=== PATIENT | male | born 1980 | race Caucasian/White ===

== ENCOUNTER 2019-11-19 05:31 | Emergency (ER) | payer MEDICAID, SELFPAY ==
[2019-11-19 05:32] VITALS: BP 166/114; PULSE 89; RESP 16; TEMP 37.1; O2SAT 100; BMI 21.4
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
[2019-11-19] MEDS: HYDROcodone Bitartrate/Apap 5/325 Tablet PO (06:20)
[2019-11-19 07:55] VITALS: BP 168/107; PULSE 76; RESP 16; O2SAT 99
--- NOTE | 2019-11-19 07:56 | ED.RN ---
DISCHARGE INSTRUCTIONS GIVEN TO AND REVIEWED WITH PATIENT, PATIENT DENIES QUESTIONS OR CONCERNS AND VOICES UNDERSTANDING OF DISCHARGE INSTRUCTIONS. PT AMBULATES OUT OF ROOM WITHOUT ISSUE.
== END 2019-11-19 07:56 | disposition home or self-care (01) ==
PROVIDERS: Emergency Provider Emergency Medicine
DX: S02.609A Fracture of mandible, unspecified, initial encounter for closed fracture (principal); S00.11XA Contusion of right eyelid and periocular area, initial encounter; K02.9 Dental caries, unspecified; Y04.0XXA Assault by unarmed brawl or fight, initial encounter; Y93.9 Activity, unspecified; Y92.9 Unspecified place or not applicable; F17.200 Nicotine dependence, unspecified, uncomplicated
CPT/HCPCS: 70486; 99284

== ENCOUNTER 2019-12-23 13:57 | Emergency (ER) | payer MEDICAID, SELFPAY ==
[2019-12-23] VITALS (8 sets, daily range): BP systolic 149–166; BP diastolic 95–107; PULSE 85–118; RESP 16–18; TEMP -8.8–37.1; O2SAT 97–100; BMI 22.7
--- NOTE | 2019-12-23 15:20 | CT_ITS ---
STUDY: CT SOFT TISSUE NECK WITH CONTRAST REASON FOR EXAM: Male, 39 years old. Left cheek abscess. History of mandibular fracture one month ago. RADIATION DOSAGE (If Supplied By Facility): CTDIvol = ( 15.45 ) mGy, DLP = ( 451.34 ) mGycm TECHNIQUE: The patient was scanned in a multi-detector CT scanner. High resolution transaxial imaging was performed following intravenous administration of IV 100mL Isovue-300. Sagittal and coronal images were reconstructed. Individualized dose optimization techniques were used for this CT. COMPARISON: None. FINDINGS: A right parotid gland. The left parotid gland is poorly visualized. Along its lateral margin or arising from the left parotid is a bilobed fluid collection with enhancing perimeter measuring 2.4 x 3.2 x 3.3 cm in size. Findings are compatible with abscess. There is marked stranding in the soft tissues on the left lower face anterior to the left mandible extending upward to the into the malar region with thickening of the lower preseptal soft tissues of the left orbit. Soft tissue stranding extends along the lateral aspect of the face to the external auditory canal. Lateral masseter space. There is swelling of the left temporalis muscle. There is evidence of a comminuted fracture of the body of the left mandible extending to the angle which lies just beneath the above-mentioned abscess. There appears to be complete displacement of the second molar bony minimal connection to the underlying bone. Normal bilateral parapharyngeal spaces. There is enlargement and on the left jugulodigastric lymph nodes. Normal bilateral sublingual and submandibular glands. There are enlarged lymph nodes in the mandibular space. Normal visualized nasopharynx. Normal retropharyngeal space. Normal perivertebral space. Normal visualized bilateral faucial tonsils. The visualized tongue, tongue base and oropharynx are normal. The visualized cervical lymph nodes (levels I-) are within normal size limits, and maintain normal morphology. Normal epiglottis, bilateral vallecula and hypopharynx. The pre-epiglottic and paraglottic adipose spaces are normal. Normal visualized bilateral piriform sinuses, aryepiglottic folds, vocal cords, and arytenoid-cricoid articulations. Normal subglottic trachea. Normal bilateral lobes of the thyroid gland. Normal visualized pulmonary apices. Normal visualized paranasal sinuses. Normal visualized cervical spine. CT/Soft Tissue Neck WITH Contrast IMPRESSION: 1. Bilobed abscess in the soft tissues overlying the angle of the left mandible. There is diffuse soft tissue swelling extending upward to the left orbit and laterally to the ear. 2. Underlying comminuted left mandibular fracture 3. Small left jugulodigastric and submandibular lymph nodes. 4. Electronically Signed: Miguel La DO at 16:51 EST Tel [phone], Service support ,
[2019-12-23] MEDS: 0.9% Normal Saline 1,000 ML 1000 ML IV (15:33)
[2019-12-23] MEDS: Morphine 4 MG/ML Syringe IV (15:33)
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
[2019-12-23 15:42] LABS: Absolute Neutrophil Count 11.2 X10^3/uL (2.0-7.7); Basophil# 0.04 X10^3/uL; Basophil% 0.3 % (0-1); Eosinophil# 0.25 X10^3/uL; Eosinophils% 1.7 % (0-5); Hematocrit 38.4 % (40-54); Hemoglobin 13.1 g/dL (13.0-16.5); Lymphocyte % 13.7 % (19-41); Mean Corp Hgb Conc 34.1 g/dL (32-36); Mean Corpuscular Hgb 32.3 pg (27.0-32.0); Mean Corpuscular Volume 94.8 fL (80-94); Mean Platelet Vol. 8.9 fl (6.2-12.0); Monocyte# 1.02 X10^3/uL; NRBC Flagged by Analyzer 0 % (0-5); Neutrophil # 11.22 X10^3/uL (2.7-7.7); Neutrophil % 76.9 % (47-70); Platelet Count 350 K/mm3 (150-450); RBC Distribution Width CV 14.4 % (11.6-14.6); RBC Distribution Width SD 50.2 fl (35.1-43.9); Red Blood Count 4.05 M/mm3 (4.6-6.2); White Blood Count 14.6 K/mm3 (4.4-11.0)
[2019-12-23 15:58] LABS: Anion Gap 5 (5-15); BUN 15 mg/dL (7-18); BUN/Creat Ratio 18.1 RATIO (10-20); Calcium,Total 8.8 mg/dL (8.5-10.1); Chloride 109 mmol/L (98-107); Creatinine, Serum 0.83 mg/dL (0.70-1.30); EST Glomerular Filtration Rate 109 mL/min (>60); Est Glom Filt Rate - Afr Amer 131 mL/min (>60); Estimated Creatinine Clearance 119.11 ml/min; Glucose 131 mg/dL (74-106); Potassium 4.1 mmol/L (3.5-5.1); Sodium Level 140 mmol/L (136-145)
[2019-12-23] MEDS: Vancomycin IV 1,000 MG/200 ML BAG 200 MG IV (18:52)
== END 2019-12-23 19:39 | disposition short-term general hospital (02) ==
PROVIDERS: Emergency Provider Emergency Medicine; PCP Nurse Practitioner Family
DX: L02.01 Cutaneous abscess of face (principal); L03.211 Cellulitis of face; Z72.0 Tobacco use
CPT/HCPCS: 70491; 80048; 85025; 96361; 96365; 96367; 96375; 99284; J7030; J7040; Q9967; A4216

== ENCOUNTER 2023-02-26 18:38 | Emergency (ER) | payer MEDICAID, SELFPAY ==
[2023-02-26 18:40] VITALS: BP 146/90; PULSE 95; RESP 14; TEMP 36.3; O2SAT 97; BMI 22.5
--- NOTE | 2023-02-26 20:53 | EDS_ITS ---
HPI History of Present Illness Chief Complaint: Abd Pain Informant: patient Onset/Context/Timing Onset: Yesterday Context: Gradual Onset Timing: Waxes and wanes Current Severity: Mild Maximum Severity: Mild Narrative Narrative: Patient present secondary to abdominal pain with nausea, vomiting, and diarrhea. Symptoms started around 7 PM last evening. He has not been able to keep down fluids or solids today. No fever or chills. He does report abdominal pain but it is more a general cramping that he believes is secondary to the vomiting. His roommate is currently ill with similar. PFSH PFSH Medical History no medical history no medical history Home Medications dicyclomine 20 mg tablet 20 mg PO BID PRN abdominal cramping #10 tabs 02/26/23 [Rx Last Taken Unknown] ondansetron 4 mg disintegrating tablet 4 mg PO Q8H PRN PRN Nausea #10 tabs 02/26/23 [Rx Last Taken Unknown] Allergy/AdvReac Type Severity Reaction Status Date / Time No Known Allergies Allergy Verified 03/02/21 11:20 Surgical History no surgical history no surgical history Social History Smoking Status: Current every day smoker tobacco type: cigarettes ROS ROS ED Constitutional Constitutional ED: Denies chills or fever(s) Eyes Eyes: Denies change in vision or discharge from eye(s) ENT ENT ED: Denies discharge from eye(s), rhinorrhea or sore throat Cardiovascular Cardiovascular: Denies chest pain or palpitations Respiratory/Chest Respiratory/Chest: Denies cough or dyspnea Gastrointestinal Gastrointestinal: Reports abdominal pain, diarrhea, nausea and vomiting Genitourinary Genitourinary ED: Denies dysuria Musculoskeletal Musculoskeletal: Denies back pain or extremity pain Integumentary Denies Abrasions or rash Neurologic Neurologic: Denies headache(s) or weakness Allergic/Immunologic Allergic/Immunologic ED: Denies lip swelling or urticaria EXAM Physical Exam Const Vital Signs: 02/26/23 18:40 Temperature 97.3 F L Temperature Source Temporal Pulse Rate 95 Respiratory Rate 14 Blood Pressure 146/90 H Blood Pressure Mean 108 Pulse Ox 97 Oxygen Delivery Method Room Air Positive well nourished and well developed General Appearance ED: well developed HEENT Reports normocephalic and head/scalp atraumatic Eyes PERRL and EOMs intact bilaterally Neck supple Chest Wall inspection of chest normal and palpation of chest normal Resp normal respiratory effort and clear to auscultation bilaterally Cardio regular rate and regular rhythm GI GI Narrative: Abdomen soft with no focal tenderness. Hypoactive but present bowel sounds noted. Palpation: soft Extremity normal to inspection Neuro oriented x3 and no sensory deficits noted Sensorium / Orientation: alert Motor Exam: strength 5/5 throughout Psych mental status grossly normal Skin no rashes or lesions noted MDM MDM MDM Narrative Medical decision making narrative: Patient was given IV fluids along with Zofran and Bentyl. Lab work obtained. Lab Data Attestation: I reviewed the patient's lab results. Labs: Laboratory Results - last 24 hr 02/26/23 02/26/23 20:50 20:50 WBC 8.0 RBC 5.34 Hgb 17.2 H Hct 50.6 MCV 94.8 H MCH 32.2 H MCHC 34.0 RDW Std Deviation 49.5 H RDW Coeff of Sepideh 14.2 Plt Count 203 MPV 10.3 Immature Gran % (Auto) 0.400 Neut % (Auto) 54.0 Lymph % (Auto) 32.3 [place] % (Auto) 8.4 Eos % (Auto) 4.5 Baso % (Auto) 0.4 Absolute Neuts (auto) 4.3 Absolute Lymphs (auto) 2.59 Nucleated RBC % 0 Sodium 139 Potassium 3.6 Chloride 105 Carbon Dioxide 31.0 Anion Gap 3 L BUN 10 Creatinine 0.91 Estim Creat Clear Calc 107.53 Est GFR (MDRD) Af Amer 116 Est GFR (MDRD) Non-Af 96 BUN/Creatinine Ratio 11.0 Glucose 95 Calcium 8.5 Treatment and Re-Evaluation :: CBC reveals hemoconcentration with a hemoglobin of 17.2. Normal white count and differential. Chemistry studies unremarkable. On repeat evaluation patient states he feels improved. He is able to tolerate p.o. fluids. Prescription for Zofran and Bentyl be sent to the pharmacy for him. Discharge Plan Triage Chief Complaint: Abd Pain Other Complaint: Nausea/Vomiting/Diarrhea ED Provider: Angelika Hayward Dx/Rx/DC Orders Clinical Impression: Gastroenteritis Instructions: ED Gastroenteritis, Viral (Adult) Prescriptions: New ondansetron 4 mg tablet,disintegrating 4 mg PO Q8H PRN PRN (Reason: Nausea) Qty: 10 0RF dicyclomine 20 mg tablet 20 mg PO BID PRN (Reason: abdominal cramping) Qty: 10 0RF Primary Care Provider: Care Physician,No Primary Referrals: Lynne Briceno DO [Med Staff - [employer]] - As Needed Care Physician,No Primary [Primary Care Provider] - Disposition Disposition: Home, Self Care
[2023-02-26] MEDS: Dicyclomine 20 MG/2 ML Vial IM (21:02)
[2023-02-26] MEDS: Ondansetron 4 MG/2 ML Vial IV (21:02)
[2023-02-26] MEDS: 0.9% Normal Saline 1,000 ML 1000 ML IV (21:02)
[2023-02-26 21:03] LABS: Absolute Lymphocyte Count 2.59 X10^3/uL (0.83-4.51); Absolute Neutrophil Count 4.3 X10^3/uL (2.0-7.7); Basophil# 0.03 X10^3/uL; Basophil% 0.4 % (0-1); Eosinophil# 0.36 X10^3/uL; Eosinophils% 4.5 % (0-5); Hematocrit 50.6 % (40-54); Hemoglobin 17.2 g/dL (13.0-16.5); Lymphocyte # 2.59 X10^3/ul (0.83-4.51); Lymphocyte % 32.3 % (19-41); Mean Corpuscular Hgb 32.2 pg (27.0-32.0); Mean Corpuscular Volume 94.8 fL (80-94); Mean Platelet Vol. 10.3 fl (6.2-12.0); Monocyte# 0.67 X10^3/uL; Monocyte% 8.4 % (0-10); NRBC Flagged by Analyzer 0 % (0-5); Neutrophil # 4.34 X10^3/uL (2.7-7.7); Platelet Count 203 K/mm3 (150-450); RBC Distribution Width CV 14.2 % (11.6-14.6); RBC Distribution Width SD 49.5 fl (35.1-43.9); Red Blood Count 5.34 M/mm3 (4.6-6.2)
[2023-02-26 21:22] LABS: Anion Gap 3 (5-15); BUN 10 mg/dL (7-18); Calcium,Total 8.5 mg/dL (8.5-10.1); Chloride 105 mmol/L (98-107); Creatinine, Serum 0.91 mg/dL (0.70-1.30); EST Glomerular Filtration Rate 96 mL/min (>60); Est Glom Filt Rate - Afr Amer 116 mL/min (>60); Estimated Creatinine Clearance 107.53 ml/min; Glucose 95 mg/dL (74-106); Potassium 3.6 mmol/L (3.5-5.1); Sodium Level 139 mmol/L (136-145)
[2023-02-26 22:35] LABS: Bacteria 0 SEEN /hpf (None Seen); Mucous, Urine 0 SEEN /hpf (<or=2+); Red Blood Cells-Urine 0 SEEN /hpf (0-5); Squamous Epithelial Cells - UA 0 SEEN /hpf (0-5); White Blood Cells 0 SEEN /hpf (0-5)
[2023-02-26 22:46] VITALS: BP 141/80; PULSE 63; RESP 14; O2SAT 98
[2023-02-26 23:19] LABS: Color, Urine Yellow (Yellow); Glucose, Dipstick Normal (Normal); Ketone-Dipstick Negative (Negative); Leukocyte Esterase-Dipstick Negative /ul (Negative); Nitrite-Dipstick Negative (Negative); Occult Blood-Urine Negative /ul (Negative); Protein-Dipstick 15 mg/dl (Negative); Specific Gravity, Urine 1.015 (1.002-1.030); Urine Bilirubin Dipstick Negative (Negative); Urine Clarity Sl. Cloudy (Clear); Urine Urobilinogen 1 mg/dl (Normal); Urine pH 6.5 (5.0 - 8.0)
== END 2023-02-26 22:53 | disposition home or self-care (01) ==
PROVIDERS: Emergency Provider Emergency Medicine; Visit Provider Emergency Medicine
DX: K52.9 Noninfective gastroenteritis and colitis, unspecified (principal); F17.210 Nicotine dependence, cigarettes, uncomplicated
CPT/HCPCS: 80048; 81001; 85025; 87428; 96361; 96372; 96374; 99282; J7030; A4216; J2405

== ENCOUNTER 2023-12-07 14:35 | Emergency (ER) | payer MEDICAID, SELFPAY ==
[2023-12-07 14:36] VITALS: BP 124/87; PULSE 82; RESP 18; TEMP 36.7; O2SAT 98; BMI 23.5
--- OUTSIDE RECORDS SUMMARY | 2023-12-07 17:14 | XMS RPT_ITS | CCD ---
Author Name Unknown Address [address] [place] [address] [address] [place] [address] Organization [facility] Care Team Providers Care Medical Art Therapist Name Role Phone Julisa Multani APRN, CNP Primary Care Provider Unavailable Bridget Vann APRN.CNP Primary Care Provider BRIDGET VANN Attending Unavailable BRIDGET VANN Primary Care Unavailable DURAN VERDUZCO Attending Unavailable BRIDGET VANN Primary Care Unavailable BRIDGET VANN Attending Unavailable BRIDGET VANN Primary Care Unavailable Medications Current Medications Medication Drug Class(es) Dates Sig (Normalized) Sig (Original) acetaminophen 500 mg oral tablet (2 sources) Start: 12-28-2019 take 1 tablet by mouth four times daily as needed for pain acetaminophen (TYLENOL) 500 MG tablet Take 1 tablet by mouth 4 times daily as needed for Pain 120 tablet 0 12/28/2019 Active Completed/Discontinued Medications Medication Drug Class(es) Dates Sig (Normalized) Sig (Original) calcium chloride 0.0014 meq/ml / potassium chloride 0.004 meq/ml / sodium chloride 0.103 meq/ml / sodium lactate 0.028 meq/ml injectable solution (1 source) Start: 12-23-2019 End: 12-26-2019 Intravenous, at 125 mL/hr, CONTINUOUS, Starting 12/23/19 at 2230 1 ml hydrALAZINE hydrochloride 20 mg/ml injection (1 source) Arteriolar Vasodilator Start: 12-24-2019 End: 12-24-2019 hydrALAZINE (APRESOLINE) injection 5 mg 1 ml ketorolac tromethamine 30 mg/ml cartridge (2 sources) Nonsteroidal Anti-inflammatory Drug, Cyclooxygenase Inhibitor Start: 12-26-2019 End: 12-27-2019 ketorolac (TORADOL) injection 30 mg Problems Active Problems Problem Classification Problem Date Documented Da te Episodic/Chronic Neoplasms of unspecified nature or uncertain behavior (2 sources) Skin lesion; Translations: [Neoplasm of unspecified behavior of bone, soft tissue, and skin] Onset: 11-08-2023 Episodic Other male genital disorders (2 sources) Male erectile dysfunction, unspecified; Translations: [Impotence of organic origin] Onset: 11-08-2023 Chronic Viral infection (1 source) Verruca vulgaris; Translations: [Viral wart, unspecified] Onset: 05-06-2023 05-06-2023 Episodic Past or Other Problems Problem Classification Problem Date Documented Date Episodic/Chronic Disorders of teeth and jaw (2 sources) Abscess of mandible Onset: 12-23-2019 Episodic Immunizations and screening for infectious disease (4 sources) Patient encounter status; Translations: [Encounter for immunization] Onset: 04-02-2023 Episodic Other screening for suspected conditions (not mental disorders or infectious disease) (3 sources) Encounter for screening for lipoid disorders; Translations: [Encounter for screening for cardiovascular disorders] Onset: 04-02-2023 Episodic Skin and subcutaneous tissue infections (2 sources) Cellulitis of face Onset: 12-23-2019 Episodic Skull and face fractures (2 sources) Closed fracture of body of mandible Onset: 12-23-2019 Episodic Results Test Name Value Interpretation Reference Range Facil ity Vital Signs Date Time Vital Sign Value Performing Clinician Francy naranjo 04-02-2023 16:02-0400 Body weight 68.49 kg Bridget Vann APRN.CNP Work Phone: [facility] 04-02-2023 16:02-0400 Diastolic blood pressure 80 mm[Hg] Bridget Vann APRN.CNP Work Phone: [facility] 04-02-2023 16:02-0400 Heart rate 110 /min Bridget Vann APRN.CNP Work Phone: [facility] 04-02-2023 16:02-0400 Respiratory rate 16 /min Bridget Vann APRN.CNP Work Phone: [facility] 04-02-2023 16:02-0400 Systolic blood pressure 130 mm[Hg] Bridget Vann APRN.CNP Work Phone: [facility] 12-28-2019 17:24-0500 Body temperature 98.2 [degF] Nik Ferreira MD Work Phone: [facility] Work Phone: 12-28-2019 17:24-0500 Diastolic blood pressure 94 mm[Hg] Nik Ferreira MD Work Phone: [facility] Work Phone: 12-28-2019 17:24-0500 Heart rate 82 /min Nik Ferreira MD Work Phone: [facility] Work Phone: 12-28-2019 17:24-0500 Respiratory rate 16 /min Nik Ferreira MD Work Phone: [facility] Work Phone: 12-28-2019 17:24-0500 SaO2% (BldA) [Mass fraction] 97 % Nik Ferreira MD Work Phone: [facility] Work Phone: 12-28-2019 17:24-0500 Systolic blood pressure 167 mm[Hg] Nik Ferreira MD Work Phone: [facility] Work Phone: 12-23-2019 20:45-0500 Body height 177.8 cm Nik Ferreira MD Work Phone: [facility] Work Phone: 12-23-2019 20:45-0500 Body mass index (BMI) [Ratio] 22.53 kg/m2 Nik Ferreira MD Work Phone: [facility] Work Phone: 12-23-2019 20:45-0500 Body weight 71.22 kg Nik Ferreira MD Work Phone: [facility] Work Phone: Encounters Encounter Date Encounter Type Care Provider Facility Start: 11-08-2023 End: 11-09-2023 ambulatory BRIDGET VANN Facility:[facility] Start: 05-06-2023 Telephone encounter Duran bermeo APRN.WEB CONTENT & SOCIAL MEDIA MANAGER Work Phone: Dermatology Procedures Date Procedure Procedure Detail Performing Clinician Start: 12-29-2019 Microscopic examinat ion of blood, culture Plan of Treatment Date Care Activity Detail Author Start: 04-02-2033 Urine microalbumin profile DTA P,TDAP,TD (2 - Td or Tdap) [facility] Start: 04-02-2024 COVID-19 VACCINE (#1) COVID-19 VACCI NE (#1) [facility] Immunizations Immunization Date Immunization Notes Care Provider Fa cility 04-02-2023 tetanus toxoid, redu meghan diphtheria toxoid, and acellular pertussis vaccine, adsorbed Bridget Vann GAS COMPRESSOR OPERATOR.WEB CONTENT & SOCIAL MEDIA MANAGER Work Phone: [facility] Payers Date Payer Category Payer Medicaid [employer] [place] [id number] 2023-Present [phone] [address] [address] [place] [address] Medicaid [id number] 2023 Medicaid [id number] 2019 Medicaid [employer] [place] [employer] [place] [employer] xxxxxxxxxxxx 2019-Present [phone] [address] [address] [place] [address] xxxxxxxxxxxx [id number] Social History Date Type Detail Facility Start: 12-24-2019 End: 04-02-2023 Tobacco smoking status NHIS Current every day smoker [facility] Work Phone: History of tobacco use Cigarette Smoker [facility] Start: 12-24-2019 End: 04-02-2023 Cigarettes smoked current (pack per day) - Reported [facility] Work Phone: Start: 1980 Sex Assigned At Not on file [facility] Work Phone: Start: 04-02-2023 Tobacco use and exposure Smokeless tobacco non-user [facility] Work Phone: Start: 04-02-2023 End: 05-06-2023 Alcohol intake Ex-drinker (finding) [facility] Progress note 11-08-2023 Note Date & Type Note Facility 11-08-2023 Note HNO ID: [id number] Author: Bridget Vann APRN.WE[employer] CONTENT & SOCIAL MEDIA MANAGER Service: ? Author Type: Nurse Practitioner Type: Progress Notes Filed: 11/08/2023 10:26 AM Note Text: Chief Complaint Patient presents with: Follow Up HPI Arpita Hammonds is a 43 year old male who presents here today for Above Complaints.. Patient presents for follow up. Patient was seen by derm who removed a wart and prescribed medication however insurance denied coverage. Patient reports area is growing back. Patient also requesting referral to urology. Past medical history, appointments, medications, allergies reviewed. Previous Medical History PAST MEDICAL HISTORY Diagnosis Date Abnormal skin growth 04/02/2023 Closed fracture of left side of mandibular body (HCC) 12/23/2019 Erectile dysfunction, unspecified erectile dysfunction type 04/02/2023 Verruca vulgaris 05/06/2023 Previous Surgical History PAST SURGICAL HISTORY Procedure Laterality Date TONGUE,MOUTH,JAW SURGERY abscess tooth that got worse Family History FAMILY HISTORY Problem Relation Age of Onset other (spina bifida) Brother Patient Allergies ALLERGIES No Known Allergies Current Medications No current outpatient medications on file prior to visit. No current facility-administered medications on file prior to visit. Social History Social History Tobacco Use Smoking status: Every Day Packs/day: 0.50 Years: 20.00 Additional pack years: 0.00 Total pack years: 10.00 Types: Cigarettes Smokeless tobacco: Never Substance Use Topics Alcohol use: Not Currently Drug use: Not Currently Types: Marijuana Review of Symptoms REVIEW OF SYSTEMS SEE HPI EXAM: BP 144/88 Pulse 84 Resp 16 Wt 73.5 kg (162 lb) General Appearance: Well appearing, alert, in no acute distress, well-hydrated, well nourished.. Health Maintenance List Pneumococcal Vaccine(1 - PCV) Never done Hepatitis C Screening Never done HIV Screening Never done Lipid Screening Never done Diabetes Screening due on 2023 Colorectal Cancer Screening Never done Influenza Vaccine(1) Never done Covid-19 Vaccine(1) due on 04/02/2024 DTaP,Tdap,Td Vaccine(2 - Td or Tdap) due on 04/02/2033 Depression Assessment Completed HPV Vaccine Aged Out Hepatitis B Vaccine Discontinued ASSESSMENT/PLAN: 1. Abnormal skin growth - ICD9: 239.2, ICD10: D49.2 (primary diagnosis) -Patient instructed to return to Dermatology 2. Erectile dysfunction, unspecified erectile dysfunction type - ICD9: 607.84, ICD10: N52.9 -Consult entered for urology at last appointment. Patient instructed to stop at test deskman to schedule. Bridget Vann APRN.CNP [facility] Note 05-06-2023 Telephone Encounter - Camilla Courtney RN - 05/06/2023 12:59 PM EDT Note Date & Type Note Facility 05-06-2023 Miscellaneous Notes Formattin g of this note might be different from the original. PA for Johan submitted via [employer]. Camilla Courtney RN May 06, 2023 1:00 PM documented in this encounter [facility] Progress note 04-22-2023 Note Date & Type Note Facility 04-22-2023 Note HNO ID: [id number] Author: Duran Verduzco APRN.CNP Service: ? Author Type: Nurse Practitioner Type: Progress Notes Filed: 04/25/2023 8:24 AM Note Text: Department of Dermatology Duran Verduzco APRN.CNP 04/22/2023 Last visit in Dermatology: Visit date not found Objective/Assessment/Plan 1. Neoplasm of unspecified behavior of bone, soft tissue, and skin Right Lower Leg - Posterior [id number] dome-shaped plaque SKIN / NAIL BIOPSY Type of biopsy: tangential Informed consent: discussed and consent obtained Timeout: patient name, date of , surgical site, and procedure verified Procedure prep: Patient was prepped and draped in usual sterile fashion Prep type: Isopropyl alcohol Anesthesia: the lesion was anesthetized in a standard fashion Anesthetic: 1% lidocaine w/ epinephrine 1-100,000 local infiltration Instrument used: DermaBlade Hemostasis achieved with: aluminum chloride Outcome: patient tolerated procedure well Post-procedure details: sterile dressing applied Dressing type: bandage and petrolatum Specimen A - SURGICAL PATHOLOGY SKIN ONLY Follow-up as noted below or as needed. Duran Verduzco APRN.WEB CONTENT & SOCIAL MEDIA MANAGER ---- Chief Complaint: Patient presents with: LESION, SKIN Subjective and Objective HPI: Arpita Hammonds is a 42 year old male who presents for: For individual lesion(s). Lesion(s): growth Location(s): right lower leg Duration: months Symptoms: increasing in size and painful Severity: n/a Inciting factors: none Associated symptoms/previous treatments: none Past medical history is reviewed. Medication list is reviewed. Physical Exam included: Right leg Intake completed by María Elena Snider LPN UNIVERSAL PROTOCOL / SAFETY CHECKLIST Procedure to be Performed: Shave biopsy x 1 Sign In: A Moment of CARE was completed. Personnel directly involved with the procedure wore the appropriate PPE (Personal Protective Equipment). Special equipment: Hyfrecator Patient/Surrogate Stated/Verified: PATIENT VERIFIED(optional for EMERGENT procedures): Patient name, Date of , Relevant allergies, and The intended procedure Time Out Communication: Intended patient and procedure match the source documents. Consent documented and matches the intended procedure. No relevant labs, photos, and/or imaging studies were applicable for review. Correct side/site marked and visible. Medications required for procedure verified. Fire risk assessed and interventions discussed. No implant(s) inserted. Sign Out: SIGN OUT (optional for EMERGENT procedures): All specimen containers correctly labeled. All instruments, equipment, possible retained foreign bodies accounted for. Post-procedure follow-up management communicated and Plan of Care Visit completed when applicable. ELIZABETH Orellana APRN.KRISSY [facility] Progress note 04-02-2023 Note Date & Type Note Facility 04-02-2023 Note HNO ID: [id number] Author: Bridget Vann APRN.KRISSY Service: ? Author Type: Nurse Practitioner Type: Progress Notes Filed: 04/04/2023 8:57 AM Note Text: Chief Complaint Patient presents with: Establish Care HPI Arpita Hammonds is a 42 year old male who presents here today for Above Complaints.. Patient presents to establish care. Patient reports concerns for a growth on his right leg. Patient also voices concerns with getting and maintaining an erection for the past year. Past medical history, appointments, medications, allergies reviewed. Previous Medical History No past medical history on file. Previous Surgical History No past surgical history on file. Family History No family history on file. Patient Allergies ALLERGIES No Known Allergies Current Medications No current outpatient medications on file prior to visit. No current facility-administered medications on file prior to visit. Social History Review of Symptoms REVIEW OF SYSTEMS GENERAL: No weight loss, malaise or fevers HEENT: Negative for frequent or significant headaches, No changes in hearing or vision, no nose bleeds or other nasal problems NECK: Negative for lumps, goiter, pain and significant neck swelling RESPIRATORY: Negative for cough, hemoptysis, wheezing, COPD, dyspnea or shortness of breath CARDIOVASCULAR: Negative for chest pain, leg swelling, hypertension, CHF or palpitations GI: No nausea, vomiting, or diarrhea : Positive for difficulty maintaining erection MUSCULOSKELETAL: Negative for joint pain or swelling, back pain or muscle pain SKIN: Positive for growth PSYCH: sleep fragmented HEMATOLOGY/LYMPHOLOGY: Negative for prolonged bleeding, bruising easily or swollen nodes ENDOCRINE: Negative for cold or heat intolerance, polyuria, polydipsia and goiter NEURO: No history of headaches, syncope, paralysis, seizures or tremors EXAM: BP 130/80 Pulse 110 Resp 16 Wt 68.5 kg (151 lb) General Appearance: Well appearing, alert, in no acute distress, well-hydrated, well nourished.. Skin: Positives: Quarter size horn like growth to posterior right calf. Neck: Supple, no adenopathy; thyroid symmetric, normal size, no bruits. Lungs: Lungs clear to auscultation. No wheezing, rhonchi, rales.. Heart: RRR without murmur, gallop, or rubs. No ectopy. Abdomen: Normal abdominal exam, Abdomen soft, non-tender. Bowel sounds normal. No masses, organomegaly. Extremities: No deformities, edema, skin discoloration, clubbing or cyanosis. Good capillary refill. . Peripheral Pulses: Normal. Neurologic: Gait normal. Reflexes normal and symmetric. Sensation grossly intact.. Health Maintenance List HEPATITIS B(1 of 3 - 3-dose series) Never done HEPATITIS C SCREENING Never done HIV SCREENING Never done DTAP,TDAP,TD(1 - Tdap) Never done LIPID SCREEN Never done DEPRESSION ASSESSMENT Never done COVID-19 VACCINE(1) due on 04/02/2024 INFLUENZA(Season Ended) due on 08/02/2023 ASSESSMENT/PLAN: 1. Well adult exam - ICD9: V70.0, ICD10: Z00.00 (primary diagnosis) - Counseled on healthy diet and regular exercise - Smoking cessation encouraged; discussed risks to health and quitting strategies. Patient is contemplative - Depression screening tool completed and reviewed with patient. Based on score and interview, patient is not at risk for depression and recommended no further intervention at this time. - Patient was counseled [id number] by myself (the billing provider) for the following immunizations and vaccine components, including side effects: DTaP. Patient consents for immunization and understands risks and benefits. A VIS sheet on each immunization was given to the patient. - Follow up for annual exam in one year - CBC + DIFF - COMP METABOLIC PANEL 2. Encounter for lipid screening for cardiovascular disease - ICD9: V77.91, V81.2, ICD10: Z13.220, Z13.6 - LIPID PANEL, NONFASTING 3. Screening for diabetes mellitus - ICD9: V77.1, ICD10: Z13.1 - HGB A1C 4. Encounter for immunization - ICD9: V03.89, ICD10: Z23 - TDAP VACCINE, AGE 7+ YR (ADACEL, BOOSTRIX) 5. Abnormal skin growth - ICD9: 239.2, ICD10: D49.2 - CONSULT TO DERMATOLOGY 6. Erectile dysfunction, unspecified erectile dysfunction type - ICD9: 607.84, ICD10: N52.9 - CONSULT TO UROLOGY Bridget Vann APRN.CNP [facility] Instructions 04-02-2023 Patient Instructions Note Date & Type Note Facility 04-02-2023 Instructions Bridget Vann APRN.CNP - 04/02/2023 4:22 PM EDT Complete lab work Schedule with Derm and urology Follow up in 3 months documented in this encounter [facility] History of Present illness Narrative 04-02-2023 Bridget Vann APRN.CNP - 04/02/2023 4:09 PM EDT Note Date & Type Note Facility 04-02-2023 History of Presen t illness Narrative Chief Complaint Patient presents with: [facility] HPI Arpita Hammonds is a 42 year old male who presents here today for Above Complaints.. Patient presents to [facility]. Patient reports concerns for a growth on his right leg. Patient also voices concerns with getting and maintaining an erection for the past year. Past medical history, appointments, medications, allergies reviewed. Previous Medical History No past medical history on file. Previous Surgical History No past surgical history on file. Family History No family history on file. Patient Allergies ALLERGIES No Known Allergies Current Medications No current outpatient medications on file prior to visit. No current facility-administered medications on file prior to visit. Social History Review of Symptoms REVIEW OF SYSTEMS GENERAL: No weight loss, malaise or fevers HEENT: Negative for frequent or significant headaches, No changes in hearing or vision, no nose bleeds or other nasal problems NECK: Negative for lumps, goiter, pain and significant neck swelling RESPIRATORY: Negative for cough, hemoptysis, wheezing, COPD, dyspnea or shortness of breath CARDIOVASCULAR: Negative for chest pain, leg swelling, hypertension, CHF or palpitations GI: No nausea, vomiting, or diarrhea : Positive for difficulty maintaining erection MUSCULOSKELETAL: Negative for joint pain or swelling, back pain or muscle pain SKIN: Positive for growth PSYCH: sleep fragmented HEMATOLOGY/LYMPHOLOGY: Negative for prolonged bleeding, bruising easily or swollen nodes ENDOCRINE: Negative for cold or heat intolerance, polyuria, polydipsia and goiter NEURO: No history of headaches, syncope, paralysis, seizures or tremors EXAM: BP 130/80 Pulse 110 Resp 16 Wt 68.5 kg (151 lb) General Appearance: Well appearing, alert, in no acute distress, well-hydrated, well nourished.. Skin: Positives: Quarter size horn like growth to posterior right calf. Neck: Supple, no adenopathy; thyroid symmetric, normal size, no bruits. Lungs: Lungs clear to auscultation. No wheezing, rhonchi, rales.. Heart: RRR without murmur, gallop, or rubs. No ectopy. Abdomen: Normal abdominal exam, Abdomen soft, non-tender. Bowel sounds normal. No masses, organomegaly. Extremities: No deformities, edema, skin discoloration, clubbing or cyanosis. Good capillary refill. . Peripheral Pulses: Normal. Neurologic: Gait normal. Reflexes normal and symmetric. Sensation grossly intact.. Health Maintenance List HEPATITIS B(1 of 3 - 3-dose series) Never done HEPATITIS C SCREENING Never done HIV SCREENING Never done DTAP,TDAP,TD(1 - Tdap) Never done LIPID SCREEN Never done DEPRESSION ASSESSMENT Never done COVID-19 VACCINE(1) due on 04/02/2024 INFLUENZA(Season Ended) due on 08/02/2023 ASSESSMENT/PLAN: 1. Well adult exam - ICD9: V70.0, ICD10: Z00.00 (primary diagnosis) - Counseled on healthy diet and regular exercise - Smoking cessation encouraged; discussed risks to health and quitting strategies. Patient is contemplative - Depression screening tool completed and reviewed with patient. Based on score and interview, patient is not at risk for depression and recommended no further intervention at this time. - Patient was counseled [id number] by myself (the billing provider) for the following immunizations and vaccine components, including side effects: DTaP. Patient consents for immunization and understands risks and benefits. A VIS sheet on each immunization was given to the patient. - Follow up for annual exam in one year - CBC + DIFF - COMP METABOLIC PANEL 2. Encounter for lipid screening for cardiovascular disease - ICD9: V77.91, V81.2, ICD10: Z13.220, Z13.6 - LIPID PANEL, NONFASTING 3. Screening for diabetes mellitus - ICD9: V77.1, ICD10: Z13.1 - HGB A1C 4. Encounter for immunization - ICD9: V03.89, ICD10: Z23 - TDAP VACCINE, AGE 7+ YR (ADACEL, BOOSTRIX) 5. Abnormal skin growth - ICD9: 239.2, ICD10: D49.2 - CONSULT TO DERMATOLOGY 6. Erectile dysfunction, unspecified erectile dysfunction type - ICD9: 607.84, ICD10: N52.9 - CONSULT TO UROLOGY Bridget Vann APRN.WEB CONTENT & SOCIAL MEDIA MANAGER documented in this encounter [facility] History of Present illness Narrative 12-28-2019 Vince Rubalcava RN - 12/28/2019 5:11 PM Kimberly Michaels, RESPIRATORY CARE TECHNICIAN - 12/28/2019 11:39 AM Chuyita Boucher OT - 12/28/2019 10:45 AM Connie Forrester MD - 12/27/2019 9:37 AM EST Note Date & Type Note Facility 12-28-2019 History of Present illness Narrative Discussed discharge instructions and homegoing medications with patient. He stated he understands. Provided patients with bandages for face incision. Providing patient with yellow cab to brother's house when he has finished dinner. Facility/Department: [facility] Dysphagia Treatment Note NAME: Arpita Hammonds : 1980 Patient Diagnosis(es): Patient Active Problem List Diagnosis Mandibular abscess Closed fracture of left side of mandibular body (HCC) Cellulitis, face Allergies: No Known Allergies Onset Date: 12/23/2019 Oxygen Level: Room Air Current Diet Level: Puree / Thin Liquids Pain: None reported S: Alert and cooperative. Patient reports that he is hungry. O: Assess patient tolerance of current diet. A: Patient is able to self feed lunch tray menu items. There is no difficulty with bolus formation or AP transit. There is no oral residue. Lingual laterlazation and strength is adequate. Noted possibly reduced posterior tongue strnength on the right. Laryngeal excursion is clinically adequate. Patient is able to drink thin liquids continuously from a cup without an audible swallow, wet voice or cough. Noted patient has a mildly hoarse / harsh voice. Patient indicates that same has been present over the past few days. There is no change in vocal quality with PO intake. Confirmed with RN that patient is to remain on a Puree diet during this admission. Patient is planning to have surgery as an OP. Patient is tentatively to discharge to home tomorrow. [x] Goal met [] Progressing as expected [] Progressing slower than expected [] Medical status inhibits participation [] Goals not addressed this session [] Goals revised this session [] Unable to show any progress towards functional goals [] Progress towards functional goal is gradual / fair P: Please continue a Puree diet (larger portions please). Speech therapy will sign off as patient is not a candidate for diet upgrade during this admission. Time Out: 1130 Session Time: 20 minutes Occupational Therapy Per chart review and speaking with staff, pt has been up ambulating without difficulty and completing ADLs indep. No OT needs at this time. Discharge OT. Chuyita Chauhan OTR/L [facility] - Infectious Diseases Attending Progress Note Subjective: Following for extra- and intra-oral abscesses and facial cellulitis s/p I&D, tooth extraction Chart, vitals, labs reviewed. CT maxillo facial planned for today. Objective: Vitals: Patient Vitals for the past 24 hrs: BP Temp Temp src Pulse Resp SpO2 12/27/19 0557 (!) 149/102 98.3 F (36.8 C) Temporal 57 20 96 % 12/26/19 1745 (!) 149/97 98.2 F (36.8 C) Temporal 68 16 98 % Physical Exam Vitals signs and nursing note reviewed. Labs: Component Value Date/Time NA 139 12/27/2019238 K 4.0 12/27/2019238 CL 103 12/27/2019238 CO2 27 12/27/2019238 BUN 11 12/27/2019 023 CREATININE 0.63 12/27/2019 023 GLUCOSE 95 12/27/2019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
== END 2023-12-07 17:11 | disposition left against medical advice (07) ==
LOC: ED 17:11
DX: Z53.21 Procedure and treatment not carried out due to patient leaving prior to being seen by health care provider (principal)

== ENCOUNTER 2024-05-05 21:04 | Emergency (ER) | payer MEDICAID, SELFPAY ==
[2024-05-05 21:05] VITALS: BP 153/100; PULSE 80; RESP 14; TEMP 36.1; O2SAT 98
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
[2024-05-05 23:23] VITALS: BP 141/95; PULSE 71; RESP 16; TEMP 36.2; O2SAT 96
== END 2024-05-05 23:25 | disposition home or self-care (01) ==
LOC: ED 22:46
PROVIDERS: Emergency Provider Student in an Organized Health Care Education/Training Program; PCP Nurse Practitioner Family; Visit Provider Student in an Organized Health Care Education/Training Program
DX: S86.111A Strain of other muscle(s) and tendon(s) of posterior muscle group at lower leg level, right leg, initial encounter (principal); X50.0XXA Overexertion from strenuous movement or load, initial encounter; Y92.009 Unspecified place in unspecified non-institutional (private) residence as the place of occurrence of the external cause; F17.210 Nicotine dependence, cigarettes, uncomplicated
CPT/HCPCS: 73590; 99283

== ENCOUNTER 2025-05-30 11:57 | Emergency (ER) | payer MEDICAID, SELFPAY ==
[2025-05-30 11:58] VITALS: BP 137/99; PULSE 100; RESP 18; TEMP 36.6; O2SAT 97; BMI 23.0
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
[2025-05-30] MEDS: Ibuprofen 400 MG Tablet 800 MG PO (12:14)
[2025-05-30 12:23] VITALS: BP 137/99; PULSE 100; RESP 18; TEMP 36.6; O2SAT 97
--- OUTSIDE RECORDS SUMMARY | 2025-05-30 12:29 | XMS RPT_ITS | CCD ---
Author Organization [facility] Care Team Providers Care Iuss Acoustic Analyst Name Role Phone Julisa Multani APRN, CNP Primary Care Provider Unavailable Soo ADAMSON.Barak REY Primary Care Provider Barak Vann APRN.CNP Primary Care Provider BARAK VANN Attending Unavailable BARAK VANN Primary Care Unavailable Barak Vann Primary Care Unavailable Denny Gauthier Attending Unavailable Provider, Ed Physician Attending Unavailab le Care Physician, No Primary Primary Care Unava ilable Medications Current Medications Medication Drug Class(es) Dates Sig (Normalized) Sig (Original) acetaminophen 500 mg oral tablet (2 sources) Start: 12-28-2019 take 1 tablet by mouth four times daily as needed for pain acetaminophen (TYLENOL) 500 MG tablet Take 1 tablet by mouth 4 times daily as needed for Pain 120 tablet 0 12/28/2019 Active Start: 12-26-2019 acetaminophen (TYLENOL) 160 MG/5ML solution 650 mg acetaminophen 325 mg / oxyCODONE hydrochloride 5 mg oral tablet (1 source) Opioid Agonist Start: 12-28-2019 End: 12-31-2019 oxyCODONE-acetaminophen (PERCOCET) 5-325 MG per tablet Indications: Closed fracture of left side of mandibular body, initial encounter (HCC) Take 1 tablet by mouth every 6 hours as needed for Pain for up to 3 days. Intended supply: 5 days. Take lowest dose possible to manage pain 12 tablet 0 12/28/2019 12/31/2019 Active amoxicillin 875 mg / clavulanate 125 mg oral tablet (1 source) Penicillin-class Antibacterial Start: 12-28-2019 End: 02-08-2020 take 1 tablet by mouth twice daily amoxicillin-clavulanate (AUGMENTIN) 875-125 MG per tablet Take 1 tablet by mouth 2 times daily 84 tablet 0 12/28/2019 02/08/2020 Active ampicillin-sulbac young (UNASYN) 3 g ivpb minibag (1 source) Start: 12-24-2019 ampicillin-sulbactam (UNASYN) 3 g ivpb minibag chlorhexidine gluconate 1.2 mg/ml mouthwash (2 sources) Start: 12-24-2019 take 15 mL by mouth four times daily 15 mL, Mouth/Throat, 4 TIMES DAILY, First dose (after last modification) on Sat12/24/19 at 2100 Rinse and spit. Do not swallow. Start: 12-23-2019 End: 12-24-2019 take 15 mL by mouth twice daily 15 mL, Mouth/Throat, 2 TIMES DAILY, First dose on Sat12/23/19 at 2230 Rinse and spit. Do not swallow. dicyclomine hydrochloride 20 mg oral tablet (2 sources) Anticholinergic Start: 02-26-2023 take 20 mg by mouth twice daily Dicyclomine Active 20 MG PO TWICE A DAY February 26, 2023 9:40pm 0.4 ml enoxaparin sodium 100 mg/ml prefilled syringe (1 source) Low Molecular Weight Heparin Start: 12-25-2019 inject 40 mg by subcutaneous injection once daily 40 mg, Subcutaneous, DAILY, First dose on Sat12/25/19 at 0900 imiquimod 50 mg/ml topical cream (1 source) Start: 05-06-2023 End: 08-04-2023 imiquimod (ALDARA) 5 % cream Apply to affected area three times a week. 24 Each 2 05/06/2023 08/04/2023 Active Comment on above: Apply to affected ar ea three times a week. ondansetron 4 mg disintegrating oral tablet (3 sources) Serotonin-3 Receptor Antagonist Start: 02-26-2023 take 4 mg by mouth every eight hours as needed Ondansetron Active 4 MG PO EVERY 8 HOURS NEEDED February 25, 2023 11:00pm Start: 12-23-2019 4 mg, Intraven ous, EVERY 6 HOURS PRN, Nausea, Starting Sat12/23/19 at 2157 oxyCODONE (1 source) Opioid Agonist Start: 12-28-2019 oxyCODONE (DENITA ICODONE) immediate release tablet 5 mg 3 ml sodium chloride 9 mg/ml injection (2 sources) Start: 12-23-2019 10 mL, Intrave nous, EVERY 12 HOURS SCHEDULED (2 times per day), First dose on Sat12/23/19 at 2230 Start: 12-23-2019 take 10 mL intraveno usly once as needed 10 mL, Intravenous, PRN, Line Care, After every IV line use, Starting Sat12/23/19 at 2157 Completed/Discontinued Medications Medication Drug Class(es) Dates Sig (Normalized) Sig (Original) acetaminophen 325 mg / HYDROcodone bitartrate 5 mg oral tablet (2 sources) Opioid Agonist Start: 11-19-2019 End: 11-22-2019 take 1 tablet by mouth every six hours as needed Hydrocodone-Aceta minophen Discontinued 1 TABLET PO EVERY 6 HOURS NEEDED 10 3 November 19, 2019 November 22, 2019 12:09am calcium chloride 0.0014 meq/ml / potassium chloride 0.004 meq/ml / sodium chloride 0.103 meq/ml / sodium lactate 0.028 meq/ml injectable solution (1 source) Start: 12-23-2019 End: 12-26-2019 Intravenous, at 125 mL/hr, CONTINUOUS, Starting Sat12/23/19 at 2230 1 ml hydrALAZINE hydrochloride 20 mg/ml injection (1 source) Arteriolar Vasodilator Start: 12-24-2019 End: 12-24-2019 hydrALAZINE (APRESOLINE) injection 5 mg 1 ml ketorolac tromethamine 30 mg/ml cartridge (2 sources) Nonsteroidal Anti-inflammatory Drug, Cyclooxygenase Inhibitor Start: 12-26-2019 End: 12-27-2019 ketorolac (TORADOL) injection 30 mg Start: 12-24-2019 End: 12-26-2019 15 mg, Intravenous, EVERY 6 HOURS, First dose on Norma 12/24/19 at 2030, For 3 days Do not administer for more than 5 days. 4 ml labetalol hydrochloride 5 mg/ml cartridge (1 source) beta-Adrenergic Aysha Start: 12-24-2019 End: 12-24-2019 labetalol (NORMODYNE;TRANDATE) injection 5 mg 1 ml morphine sulfate 4 mg/ml injection (1 source) Opioid Agonist Start: 12-24-2019 End: 12-25-2019 take 4 mg by mouth every four hours as needed for pain 4 mg, Intravenous, EVERY 4 HOURS PRN, Pain Severe (7-10), Starting Norma 12/24/19 at 2010 If oral and IV narcotics ordered, use oral first and only use IV if oral is ineffective or cannot take oral. Do Not give oral and IV within 1 hour of each other unless specifically ordered. piperacillin 3000 mg / tazobactam 375 mg injection (1 source) Penicillin-class Antibacterial, beta Lactamase Inhibitor Start: 12-23-2019 End: 12-24-2019 piperacillin-tazobactam (ZOSYN) 3.375 g in dextrose 50 mL IVPB extended infusion (premix) vancomycin (VANCOCIN) 1,500 mg in dextrose 5 % 250 mL IVPB (1 source) Start: 12-23-2019 End: 12-27-2019 vancomycin (VANCOCIN) 1,500 mg in dextrose 5 % 250 mL IVPB Problems Active Problems Problem Classification Problem Date Documented Date Episodic/Chronic Immunizations and screening for infectious disease (3 sources) Patient encounter status; Translations: [Encounter for immunization] Episodic Noninfectious gastroenteritis (2 sources) Gastroenteritis; Translations: [Noninfective gastroenteritis and colitis, unspecified] 02-26-2023 Episodic Other connective tissue disease (1 source) Pain in right lower leg; Translations: [Pain in right lower leg] Onset: 05-15-2024 Episodic Other lower respiratory disease (2 sources) Hypoxia; Translations: [Hypoxemia] 03-02-2021 Episodic Other male genital disorders (2 sources) Male erectile dysfunction, unspecified; Translations: [Impotence of organic origin] Onset: 11-08-2023 Chronic Skull and face fractures (4 sources) Closed fracture of body of mandible; Translations: [Fracture of mandible, closed] Onset: 12-23-2019 Episodic Substance-related disorders (2 sources) Substance abuse; Translations: [Other psychoactive substance abuse, uncomplicated] 03-02-2021 Chronic Past or Other Problems Problem Classification Problem Date Documented Da te Episodic/Chronic Disorders of teeth and jaw (2 sources) Abscess of mandible Onset: 12-23-2019 Episodic Neoplasms of unspecified nature or uncertain behavior (2 sources) Skin lesion; Translations: [Neoplasm of unspecified behavior of bone, soft tissue, and skin] Onset: 11-08-2023 Episodic Residual codes; unclassified (1 source) Procedure and treatment not carried out due to patient leaving prior to being seen by health care provider; Translations: [Procedure and treatment not carried out due to patient leaving prior to being seen by health care provider] Onset: 12-12-2023 Episodic Skin and subcutaneous tissue infections (2 sources) Cellulitis of face Onset: 12-23-2019 Episodic Viral infection (2 sources) Verruca vulgaris; Translations: [Viral wart, unspecified] Onset: 05-06-2023 05-06-2023 Episodic Results Test Name Value Interpretation Reference Range Facility Emergency Department Summary on 05-05-2024 Emergency Department Summary [facility] Medical Records Department [address] [place] [address] Emergency Department Summary 05/05/24 MR#: [id number] Acct: [id number] Name: EDUARDO HAMMONDS Rep #: [id number] : 1980 44 From: Denny Gauthier DO PCP: JUANJO CastroC Status:REG ER Location: ED HPI History of Present Illness Chief Complaint: Lower Extremity Injury Narrative Narrative: 44-year-old male presenting with right calf pain. He states he was playing with his kids at home and his kid was running towards him. He picked up a bucket of water and tried to pivot to get the bucket out of the way of his child running towards him. He felt a pull in his right calf. He is having trouble bearing weight. Denies any bony injury that he knows of. He did not fall and injure himself further. PFSH PFS Home Medications ???Medication ???Instructions ???Recorded ???Last Taken ???Type NK 05/05/24 Unknown History Allergy/AdvReac Type Severity Reaction Status Date / Time No Known Allergies Allergy Verified 05/05/24 21:08 Social History Smoking Status: Current every day smoker tobacco type: cigarettes ROS ROS ED Constitutional Constitutional ED: Denies chills, fever(s) or sweats Eyes Eyes: Denies blurry vision or change in vision ENT ENT ED: Denies ear pain or sore throat Cardiovascular Cardiovascular: Denies chest pain, palpitations or racing heartbeat Respiratory/Chest Respiratory/Chest: Denies cough, dyspnea or sputum Gastrointestinal Gastrointestinal: Denies abdominal pain, constipation, diarrhea, nausea or vomiting Genitourinary Genitourinary ED: Denies dysuria, hematuria or urinary frequency Musculoskeletal Musculoskeletal: Reports other; Denies arthralgias, myalgias or neck pain Integumentary Denies abscess, Abrasions or rash Neurologic Neurologic: Denies headache(s), paresthesias or weakness Psychiatric Psychiatric: Denies anxiety, depression, suicidal ideation or suicidal thoughts Endocrine Endocrinology: Denies polydipsia or polyuria EXAM Physical Exam Const Vital Signs: 05/05/24 21:05 Temperature 97 F L Temperature Source Temporal Pulse Rate 80 Respiratory Rate 14 Blood Pressure 153/100 H Blood Pressure Mean 117 Pulse Ox 98 Oxygen Delivery Method Room Air Positive well nourished General Appearance ED: NAD HEENT Reports moist mucous membranes Resp normal respiratory effort Cardio regular rate and regular rhythm Extremity Extremity Narrative: Tenderness to palpation noted in the center of the right calf. Patient's pain is increased by dorsiflexion of the right foot. Achilles tendon is intact and nontender. No bruising or swelling noted. Full flexion extension of the right knee without pain at the knee or the fibular head. Neuro oriented x3 Sensorium / Orientation: alert Psych mental status grossly normal Skin no wounds MDM MDM MDM Narrative Medical decision making narrative: Patient presenting with right calf pain. I feel he tore his calf muscle. R.I.C.E therapy. Tylenol and ibuprofen for pain. Given crutches. Orthopedic follow-up if not improving. Return precautions discussed. Impression: 1. Calf muscle tear Radiography Diagnostic Testing: Clinical Impression(s) from Imaging Studies Tibia/Fibula X-Ray 05/05/24 21:23 IMPRESSION: Retropatellar ossicle slightly more cephalad than normal os trigonum perhaps secondary to avulsion injury. Otherwise, no acute fracture is identified. Correlate for posterior ankle pain. Electronically Signed: Milo Alcazar DO at 21:40 EDT , Discharge Plan Triage Chief Complaint: Lower Extremity Injury ED Provider: Denny Gauthier Dx/Rx/DC Orders Instructions: Gastrocnemius Muscle Tear Prescriptions: No Action NK Primary Care Provider: Barak Vann Referrals: Luis Wong MD [Med Staff - Active Staff] - 3-5 Days if not improving Care Physician,No Primary [Non-Staff] - Print Language: Azerbaijani Disposition Disposition: Home, Self Care What to do if you have Problems For any increased pain, shortness of breath, bleeding, nausea or vomiting, chest pain, or any unexpected problems, contact your Primary Care Provider. Call [facility] ([phone]) or report to the closest Emergency Room. Call 911 if necessary. 05/05/24 6838 Cosigner Signature (if applicable): CC: UNIFORM ATTENDANT-C Barak Vann Signed Normal [facility] Tibia Fibula 2 Viewson 05-05 Tibia Fibula 2 Views [facility] Imaging Services [address] [place] [address] Tibia Fibula 2 Views MR#: [id number] Acct: [id number] Name: EDUARDO HAMMONDS Rep #: [id number] : 1980 M 44 From: [facility] PCP: Care Physician,No Primary Status: PRE ER Study: Tibia Fibula 2 Views Date of Exam: 05/05/24 Exam# [id number] Ordering Dr: Shailesh Beckham [id number] EXAM: XR RIGHT TIBIA AND FIBULA, 2 VIEWS CLINICAL INDICATION: pain TECHNIQUE: Frontal and lateral views of the right tibia and fibula. COMPARISON: No relevant prior studies available. FINDINGS: BONES/JOINTS: Mild spurring of the medial malleolus. Dorsal talar spurring. Retropatellar ossicle slightly more cephalad than normal os trigonum perhaps secondary to avulsion injury. No acute fracture. No subluxation. Normal alignment. Preservation of the joint space. No sclerotic or destructive changes observed. SOFT TISSUES: No significant abnormality. No soft tissue swelling or gas. No radiopaque foreign body. RAD/Tibia Fibula 2 Views IMPRESSION: Retropatellar ossicle slightly more cephalad than normal os trigonum perhaps secondary to avulsion injury. Otherwise, no acute fracture is identified. Correlate for posterior ankle pain. Electronically Signed: Milo Alcazar DO at 21:40 EDT , CC: ED PHYSICIAN PROVIDER; No Primary Care Physician Civil Engineering Professional: Signed Normal [facility] CNOVon 11-08-2023 CNOV Office Visit (FAMPWS) EDUARDO HAMMONDS ([id number]) 1980 M CHT Date Time Provider Department 11/08/23 10:20 AM BARAK VANN During your visit today, we recorded the following information about you: Pulse Respiration Blood pressure Weight 84/minute 16/minute 144/88 73.5 kg Barak Vann APRN.[facility] 11/08/2023 10:26 AM Signed Chief Complaint Patient presents with: Follow Up HPI Eduardo Hammonds is a 43 year old male [...] on file prior to visit. No current facility-administere d medications on file prior to visit. Social [...] last appointment. 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 Barak Vann APRN.[facility] Allergies As of Date: 11/08/2023 (No Known Allergies) Date Reviewed: 11/08/2023 Reviewed by: Kaylah Ambrocio Cma - Fully Assessed Reason for Visit: Follow Up [171] Primary Visit Diagnosis:Abnormal skin growth [D49.2] Other Visit Diagnosis:Erectile dysfunction, unspecified erectile dysfunction type [N52.9] Problem List As Of Date 11/08/2023 Noted Resolved Verruca vulgaris [B07.9] 05/06/2023 Letter Text Encounter Status:Closed by BARAK VANN on 11/08/23 [facility] CNCOon 05-06-2023 CNCO Letter Text [facility] CNPNon 05-06-2023 CNPN Telephone (DERMST) EDUARDO HAMMONDS ([id number]) 1980 M [facility] Date Time Provider Department 05/06/23 DURAN VERDUZCO During your visit today, we recorded the following information about you: Omayra Courtney RN 05/06/2023 1:00 PM Signed PA for Aldara submitted via [employer]. Omayra Courtney RN May 06, 2023 1:00 PM Abeba Beckett RN 05/07/2023 9:04 AM Signed Received prior authorization DENIAL for imiquimod via fax from [email or web address]. Attempted to call patient. Phone number listed ([phone]) is invalid. Spoke to [facility] pharmacy. Patient to use Good Rx coupon ($14.76). PSS-if patient returns call please forward call to Dermatology nurse. Thank you. Allergies As of Date: 05/06/2023 (No Known Allergies) Date Reviewed: 04/22/2023 Reviewed by: María Elena Snider LPN - Fully Assessed Reason for Visit: Insurance Authorization [[id number]] Cmt: Aldara Prescriptions as of 05/07/2023 - imiquimod (ALDARA) 5 % cream Apply to affected area three times a week. Problem List As Of Date 05/06/2023 Noted Resolved Verruca vulgaris [B07.9] 05/06/2023 Encounter Status:Closed by OMAYRA COURTNEY on 05/06/23 Normal [facility] Absolute lymphocyte countOrd ered By: ED PROVIDER on 02-26-2023 Lymphocytes Auto (Unsp spec) [#/Vol] 2.59 10*3/uL 0.83-4.51 [facility] Basophil percentageOrdered B y: ED PROVIDER on 02-26-2023 Basophils/100 WBC (Bld) 0.4 % 0-1 [facility] Chloride [Moles/Vol] 105 mmol/L 98-107 [facility] Eosinophils/100 WBC (Bld) 4.5 % 0-5 [facility] Glucose [Mass/Vol] 95 mg/dL 74-106 [facility] Neutrophils (Bld) [#/Vol] 4.3 10*3/uL 2.0-7.7 [facility] Neutrophils/100 WBC (Bld) 54.0 % 47-70 [facility] Potassium [Moles/Vol] 3.6 mmol/L 3.5-5.1 [facility] Sodium [Moles/Vol] 139 mmol/L 136-145 [facility] WBC (Bld) [#/Vol] 8.0 10*3/uL 4.4-11.0 [facility] Blood erythrocytes count (nu mber/volume)Ordered By: ED PROVIDER on 02-26-2023 RBC (Bld) [#/Vol] 5.34 10*6/uL 4.6-6.2 [facility] Blood hemoglobin measurement (mass/volume)Ordered By: ED PROVIDER on 02-26-2023 Hemoglobin (Bld) [Mass/Vol] 17.2 g/dL 13.0-16.5 [facility] Blood lymphocytes/100 leukoc ytesOrdered By: ED PROVIDER on 02-26-2023 Lymphocytes/100 WBC (Bld) 32.3 % 19-41 [facility] Blood monocytes/100 leukocyt esOrdered By: ED PROVIDER on 02-26-2023 Monocytes/100 WBC (Bld) 8.4 % 0-10 [facility] Blood platelet mean volumeOr dered By: ED PROVIDER on 02-26-2023 Platelet mean volume (Bld) [Entitic vol] 10.3 fL 6.2-12.0 [facility] Determination of erythrocyte mean corpuscular volume (MCV)Ordered By: ED PROVIDER on 02-26-2023 MCV (RBC) [Entitic vol] 94.8 fL 80-94 [facility] Hematocrit Auto (Bld) [Volum e fraction]Ordered By: ED PROVIDER on 02-26-2023 Hematocrit (Bld) [Volume fraction] 50.6 % 40-54 [facility] Influenza virus A and B and SARS-CoV-2 (COVID-19) Ag panel - Upper respiratory specimOrdered By: Dr. Hayward on 02-26-2023 SARS-CoV-2 (COVID-19) RNA RAFIQ+probe Ql (Resp) [facility] Laboratory - Chemistry and C hemistry - challengeOrdered By: ED PROVIDER on 02-26-2023 CO2 [Moles/Vol] 31.0 mmol/L 21.0-32.0 [facility] Urea nitrogen/Creatinine [Mass ratio] 11.0 mg/mg 10-20 [facility] Laboratory - Hematology and Cell countsOrdered By: ED PROVIDER on 02-26-2023 Erythrocyte distribution width (RBC) [Entitic vol] 49.5 fL 35.1-43.9 [facility] Erythrocyte distribution width (RBC) [Ratio] 14.2 % 11.6-14.6 [facility] Immature granulocytes/100 WBC (Bld) 0.400 % 0.0-0.9 [facility] Comment on above: IG% - Immature Granu locytes (promyelocytes, myelocytes and metamyelocytes) > 1% indicates that a LEFT SHIFT is Present. MCH (RBC) [Entitic mass] 32.2 pg 27.0-32.0 [facility] Nucleated RBC/100 WBC (Bld) [Ratio] 0 % 0-5 [facility] MCHC Auto (RBC) [Mass/Vol]Or dered By: ED PROVIDER on 02-26-2023 MCHC (RBC) [Mass/Vol] 34.0 g/dL 32-36 [facility] No Panel InformationOrdered By: ED PROVIDER on 02-26-2023 Estimated Creatinine Clearance Calc 107.53 ml/min [facility] Estimated GFR (MDRD) Amer 116 mL/min >60 [facility] Comment on above: GFR Calc Estimated GFR (MDRD) Non-Af Amer 96 mL/min >60 [facility] Comment on above: Non- GFR Calc Platelets bldOrdered By: ED PROVIDER on 02-26-2023 Platelets (Bld) [#/Vol] 203 10*3/uL 150-450 [facility] Serum or plasma calcium ty urement (mass/volume)Ordered By: ED PROVIDER on 02-26-2023 Calcium [Mass/Vol] 8.5 mg/dL 8.5-10.1 [facility] Serum or plasma creatinine m easurement (mass/volume)Ordered By: ED PROVIDER on 02-26-2023 Creatinine [Mass/Vol] 0.91 mg/dL 0.70-1.30 [facility] Comment on above: The validity of the calculated GFR & GFRAA in patients over 70 years has not been determined. Clinical correlation is essential. Serum or plasma urea nitroge n measurement (mass/volume)Ordered By: ED PROVIDER on 02-26-2023 Urea nitrogen [Mass/Vol] 10 mg/dL 7-18 [facility] Thin prep Papanicolaou smear with manual screeningOrdered By: ED PROVIDER on 02-26-2023 Thin prep Papanicolaou smear with manual screening 3 5-15 [facility] CULTURE ANAEROBEon 0 CULTURE ANAEROBE 2 Organism Anaerobic gram negative kavon not B. fragilis Group Rare 3 Organism Anaerobic gram-negative kavon Rare Unable to identify by mass spectrometry (MALDI-TOF); no further identification. Normal [facility] Comment on above: Order Comment: Speci men collected in O.R.; received on swab. Performed By: #### H EMDF, BMP3M, LACT3, PCAL #### [facility] [address] [place] [address] Basic Metabolic Panelon 12-03 Anion gap [Moles/Vol] 9 Normal [facility] Comment on above: Performed By: #### H EMDF, BMP3M, LACT3, PCAL #### [facility] [address] [place] [address] CO2 [Moles/Vol] 28 mmol/L Normal - [facility] Comment on above: Performed By: #### H EMDF, BMP3M, LACT3, PCAL #### [facility] [address] [place] [address] Creatinine [Mass/Vol] 0.61 mg/dL Normal 0.52-1.25 [facility] Comment on above: Performed By: #### H EMDF, BMP3M, LACT3, PCAL #### [facility] [address] [place] [address] GFR/1.73 sq M predicted among blacks MDRD (S/P/Bld) [Vol rate/Area] mL/min/{1.73_m2} Normal >60 [facility] Comment on above: Performed By: #### H EMDF, BMP3M, LACT3, PCAL #### [facility] [address] [place], [place] GFR/1.73 sq M predicted among non-blacks MDRD (S/P/Bld) [Vol rate/Area] mL/min/{1.73_m2} Normal >60 [facility] Comment on above: Result Comment: Sour ce- MDRD equation with creatinine calibration to IDMS(NKDEP) eGFR not recommended for drug dose adjustment Performed By: #### H EMDF, BMP3M, LACT3, PCAL #### [place] [address] [place], [place] Chloride [Moles/Vol] 100 mmol/L Normal 98-107 [facility] Comment on above: Performed By: #### H EMDF, BMP3M, LACT3, PCAL #### [place] [address] [place], [place] Potassium [Moles/Vol] 3.8 mmol/L Normal 3.5-5.1 [facility] Comment on above: Performed By: #### H EMDF, BMP3M, LACT3, PCAL #### [place] [address] [place], [place] Sodium [Moles/Vol] 137 mmol/L Normal 135-145 [facility] Comment on above: Performed By: #### H EMDF, BMP3M, LACT3, PCAL #### [place] [address] [place], [place] Basic Metabolic PanelOrdered By: Jason Arora on 12-28-2019 Calcium [Mass/Vol] 9.2 mg/dL Normal 8.4-10.4 [facility] Work Phone: Comment on above: Performed By: #### H EMDF, BMP3M, LACT3, PCAL #### [place] [address] [place], [place] Glucose [Mass/Vol] 96 mg/dL Normal 70-100 [facility] Work Phone: Comment on above: Performed By: #### H EMDF, BMP3M, LACT3, PCAL #### [facility] [address] [place] [phone] Urea nitrogen [Mass/Vol] 10 mg/dL Normal 7-20 [facility] Work Phone: 1 Comment on above: Performed By: #### H EMDF, BMP3M, LACT3, PCAL #### [facility] [address] [place] [phone] Basic Metabolic Panel w/ Ref nadia to MGOrdered By: Jason Arora on 12-28-2019 Anion gap [Moles/Vol] 9 mmol/L [facility] Work Phone: [phone] Chloride [Moles/Vol] 100 mmol/L 98 - 10 7 mmol/L [facility] Work Phone: 1 CO2 [Moles/Vol] 28 mmol/L 22 - 30 mmol/L [facility] Work Phone: Creatinine [Mass/Vol] 0.61 mg/dL 0.52 - 1.25 mg/dL [facility] Work Phone: [phone] IF NonAfrican Nigerian >60.0 >60 mL/min [facility] Work Phone: [phone] Comment on above: Source- MDRD equatio n with creatinine calibration to IDMS(NKDEP) eGFR not recommended for drug dose adjustment GFR/1.73 sq M.predicted among blacks MDRD (S/P/Bld) [Vol rate/Area] mL/min/{1.73_m2} >60 mL/min [facility] Work Phone: [phone] Potassium [Moles/Vol] 3.8 mmol/L 3.5 - 5.1 mmol/L [facility] Work Phone: [phone] Sodium [Moles/Vol] 137 mmol/L 135 - 145 mmol/L [facility] Work Phone: [phone] Test Performed by [facility], [address] [place] [address] [facility] Work Phone: [phone] CBC auto differentialOrdered By: Jason Arora on 12-28-2019 Absolute Baso # 0.1 10*3/uL 0 - 0.2 10*3/uL [employer] Work Phone: [phone] Absolute Neut # 4.1 10*3/uL 1.8 - 7 10*3/uL [employer] Work Phone: [phone] Basophils/100 WBC (Bld) 0.8 % 0 - 2 % S [facility] Work Phone: [phone] Eosinophils (Bld) [#/Vol] 0.4 10*3/uL 0 - 0.5 10*3/uL [employer] Work Phone: [phone] Eosinophils/100 WBC (Bld) 5.4 % 1 - 6 % [facility] Work Phone: [phone] Erythrocyte distribution width (RBC) [Ratio] 14.1 % 11.5 - 14.5 % [facility] Work Phone: [phone] Granulocytes/100 WBC (Bld) 50.0 % 40 - 80 % [facility] Work Phone: [phone] Hematocrit (Bld) [Volume fraction] 41.2 % 40 - 52 % [facility] Work Phone: [phone] Hemoglobin (Bld) [Mass/Vol] 14.4 g/dL 13 - 18 g/dL [facility] Work Phone: [phone] Interpretation and review of laboratory results Abnormal [facility] Work Phone: [phone] Lymphocytes (Bld) [#/Vol] 3.0 10*3/uL 1 - 4.3 10*3/uL [facility] Work Phone: [phone] Lymphocytes/100 WBC (Bld) 36.4 % 20 - 40 % [employer] Work Phone: [phone] MCH (RBC) [Entitic mass] 33.3 pg 26 - 34 pg [facility] Work Phone: [phone] MCHC 35.0 % 32 - 36 % [facility] Work Phone: [phone] MCV (RBC) [Entitic vol] 95.1 fL 80 - 98 fL S [facility] [employer] Work Phone: [phone] Monocytes (Bld) [#/Vol] 0.6 10*3/uL 0 - 0.8 10*3/uL [facility] Work Phone: [phone] Monocytes/100 WBC (Bld) 7.4 % 2 - 10 % S [facility] Work Phone: Platelet mean volume (Bld) [Entitic vol] 7.5 fL 7.4 - 10.4 fL [employer] Work Phone: [phone] Platelets (Bld) [#/Vol] 379 10*3/uL 140 - 440 10*3/uL [employer] Work Phone: RBC (Bld) [#/Vol] 4.33 10*6/uL Low 4.4 - 5.9 10*6/uL [employer] Work Phone: WBC (Bld) [#/Vol] 8.2 10*3/uL 3.6 - 10.7 10*3/uL [employer] Work Phone: Test Performed by [facility], [address] [place] [address] [employer] Work Phone: CULT./ST. BACTERIAon 020 CULT./ST. BACTERIA CULT./ST. BACTERIA --> Status: F Mixed skin liu present. STAIN GRAM --> Status: F Many polymorphonuclear cells/lpf. Moderate gram positive cocci. Moderate gram positive cocci. 1 Organism Streptococcus anginosus Few 1 Organism Antibiotic Result Intrp Ampicillin(ALVA) <= 0.25 S Ceftriaxone(ALVA) = 0.5 S Clindamycin(ALVA) <= 0.25 S Vancomycin(ALVA) = 0.5 S Normal [facility] [employer] Comment on above: Order Comment: Speci men Source Comment:Abscess Performed By: #### H EMDF, BMP3M, LACT3, PCAL #### [facility] [employer] [address] [place] [phone] Culture, Aerobic Bacteria wi th Gram StaiOrdered By: Duane Colon on 12-28-2019 Aerobic Culture Mixed skin liu present. [employer] Work Phone: [phone] Gram Stain Result Many polymorphonuclear cells/lpf. Few gram positive cocci. Rare gram positive bacilli. [employer] Work Phone: [phone] Test Performed by [facility] [employer], [address] [place] [id number] Specimen collected in O.R.; received on swab. [employer] Work Phone: Aerobic Culture Mixed skin liu present. Abnormal [employer] Work Phone: Aerobic Culture Streptococcus anginosus Abnormal [facility] [employer] Work Phone: [phone] Aerobic Culture Few [facility] Work Phone: Gram Stain Result Many polymorphonuclear cells/lpf. Moderate gram positive cocci. [employer] Work Phone: Interpretation and review of laboratory results Abnormal [facility] [employer] Work Phone: Test Performed by [facility] [employer], [address] [place] [address] Specimen Source Comment:Abscess [facility] [employer] Work Phone: Hemogram w/ Autodiffon 12-28 Abs Baso Cnt 0.1 10*3/uL Normal 0.0-0.2 [facility] Comment on above: Performed By: #### H EMDF, BMP3M, LACT3, PCAL #### [facility] [employer] [address] [place] [phone] Abs Neutrophile Cnt 4.1 10*3/uL Normal 1.8-7.0 [facility] Comment on above: Performed By: #### H EMDF, BMP3M, LACT3, PCAL #### [facility] [employer] [address] [place] [address] Basophils/100 WBC (Bld) 0.8 % Normal 0.0-2.0 S [facility] Comment on above: Performed By: #### H EMDF, BMP3M, LACT3, PCAL #### [address] [address] [place], [place] Eosinophils (Bld) [#/Vol] 0.4 10*3/uL Normal 0.0-0.5 [facility] Comment on above: Performed By: #### H EMDF, BMP3M, LACT3, PCAL #### [address] Eosinophils/100 WBC (Bld) 5.4 % Normal 1.0-6.0 [facility] Comment on above: Performed By: #### H EMDF, BMP3M, LACT3, PCAL #### [address] Erythrocyte distribution width (RBC) [Ratio] 14.1 % Normal 11.5-14.5 [facility] Comment on above: Performed By: #### H EMDF, BMP3M, LACT3, PCAL #### [address] Granulocytes/100 WBC (Bld) 50.0 % Normal 40.0-80.0 [facility] Comment on above: Performed By: #### H EMDF, BMP3M, LACT3, PCAL #### [address] Hematocrit (Bld) [Volume fraction] 41.2 % Normal 40.0-52.0 [facility] Comment on above: Performed By: #### H EMDF, BMP3M, LACT3, PCAL #### [address] Hemoglobin (Bld) [Mass/Vol] 14.4 g/dL Normal 13.0-18.0 [facility] Comment on above: Performed By: #### H EMDF, BMP3M, LACT3, PCAL #### [address] [place] Lymphocytes (Bld) [#/Vol] 3.0 10*3/uL Normal 1.0-4.3 [facility] Comment on above: Performed By: #### H EMDF, BMP3M, LACT3, PCAL #### [address] Lymphocytes/100 WBC (Bld) 36.4 % Normal 20.0-40.0 [facility] Comment on above: Performed By: #### H EMDF, BMP3M, LACT3, PCAL #### [address] MCH (RBC) [Entitic mass] 33.3 pg Normal 26.0-34.0 [facility] Comment on above: Performed By: #### H EMDF, BMP3M, LACT3, PCAL #### [address] MCHC (RBC) [Mass/Vol] 35.0 % Normal 32.0-36.0 [facility] Comment on above: Performed By: #### H EMDF, BMP3M, LACT3, PCAL #### [address] MCV (RBC) [Entitic vol] 95.1 fL Normal 80.0-98.0 S [facility] Comment on above: Performed By: #### H EMDF, BMP3M, LACT3, PCAL #### [address] Monocytes (Bld) [#/Vol] 0.6 10*3/uL Normal 0.0-0.8 [facility] Comment on above: Performed By: #### H EMDF, BMP3M, LACT3, PCAL #### [address] Monocytes/100 WBC (Bld) 7.4 % Normal 2.0-10.0 S [facility] Comment on above: Performed By: #### H EMDF, BMP3M, LACT3, PCAL #### [address] [address] [address] [place], [place] Platelet mean volume (Bld) [Entitic vol] 7.5 fL Normal 7.4-10.4 [facility] Comment on above: Performed By: #### H EMDF, BMP3M, LACT3, PCAL #### [address] [address] [address] [place], [place] Platelets (Bld) [#/Vol] 379 10*3/uL Normal 140-440 [facility] Comment on above: Performed By: #### H EMDF, BMP3M, LACT3, PCAL #### [address] [address] [place], [place] RBC (Bld) [#/Vol] 4.33 10*6/uL Low 4.40-5.90 [facility] Comment on above: Performed By: #### H EMDF, BMP3M, LACT3, PCAL #### [address] [address] [place], [place] WBC (Bld) [#/Vol] 8.2 10*3/uL Normal 3.6-10.7 [facility] Comment on above: Performed By: #### H EMDF, BMP3M, LACT3, PCAL #### [address] [address] [place], [place] Basic Metabolic Panelon 01-2 Anion gap [Moles/Vol] 9 Normal [facility] Comment on above: Performed By: #### H EMDF, BMP3M, LACT3, PCAL #### [address] [place], [place] Calcium [Mass/Vol] 8.8 mg/dL Normal 8.4-10.4 [facility] Comment on above: Performed By: #### H EMDF, BMP3M, LACT3, PCAL #### [address] [place], [place] CO2 [Moles/Vol] 27 mmol/L Normal 22-30 [facility] Comment on above: Performed By: #### H EMDF, BMP3M, LACT3, PCAL #### [address] [address] [address] [place], [place] Creatinine [Mass/Vol] 0.63 mg/dL Normal 0.52-1.25 [facility] Comment on above: Performed By: #### H EMDF, BMP3M, LACT3, PCAL #### [address] [address] [place] [address] GFR/1.73 sq M predicted among blacks MDRD (S/P/Bld) [Vol rate/Area] mL/min/{1.73_m2} Normal >60 [facility] Comment on above: Performed By: #### H EMDF, BMP3M, LACT3, PCAL #### [address] [address] [place], [place] GFR/1.73 sq M predicted among non-blacks MDRD (S/P/Bld) [Vol rate/Area] mL/min/{1.73_m2} Normal >60 [facility] Comment on above: Result Comment: Sour ce- MDRD equation with creatinine calibration to IDMS(NKDEP) eGFR not recommended for drug dose adjustment Performed By: #### H EMDF, BMP3M, LACT3, PCAL #### [address] Glucose [Mass/Vol] 95 mg/dL Normal 70-100 [facility] Comment on above: Performed By: #### H EMDF, BMP3M, LACT3, PCAL #### [address] [address] [place], [place] Urea nitrogen [Mass/Vol] 11 mg/dL Normal 7-20 [facility] Comment on above: Performed By: #### H EMDF, BMP3M, LACT3, PCAL #### [address] Chloride [Moles/Vol] 103 mmol/L Normal 98-107 [facility] Comment on above: Performed By: #### H EMDF, BMP3M, LACT3, PCAL #### [address] [phone] Potassium [Moles/Vol] 4.0 mmol/L Normal 3.5-5.1 [facility] Comment on above: Performed By: #### H EMDF, BMP3M, LACT3, PCAL #### [facility] [address] [place] [address] Sodium [Moles/Vol] 139 mmol/L Normal 135-145 [facility] Comment on above: Performed By: #### H EMDF, BMP3M, LACT3, PCAL #### [facility] [employer] [facility] [address] [place] [address] Basic Metabolic Panel w/ Ref nadia to MGOrdered By: Jason Arora on 12-27-2019 Anion gap [Moles/Vol] 9 mmol/L [facility] Work Phone: Calcium [Mass/Vol] 8.8 mg/dL 8.4 - 10. 4 mg/dL [facility] Work Phone: Chloride [Moles/Vol] 103 mmol/L 98 - 10 7 mmol/L [facility] Work Phone: CO2 [Moles/Vol] 27 mmol/L 22 - 30 mmol/L [facility] Work Phone: Creatinine [Mass/Vol] 0.63 mg/dL 0.52 - 1.25 mg/dL [facility] Work Phone: EGFR IF NonAfrican Nigerian >60.0 >60 mL/min [facility] Work Phone: Comment on above: Source- MDRD equatio n with creatinine calibration to IDMS(NKDEP) eGFR not recommended for drug dose adjustment GFR/1.73 sq M.predicted among blacks MDRD (S/P/Bld) [Vol rate/Area] mL/min/{1.73_m2} >60 mL/min [facility] Work Phone: Glucose [Mass/Vol] 95 mg/dL 70 - 100 mg/dL [facility] Work Phone: Potassium [Moles/Vol] 4.0 mmol/L 3.5 - 5.1 mmol/L [facility] Work Phone: Sodium [Moles/Vol] 139 mmol/L 135 - 145 mmol/L [employer] Work Phone: 1 Urea nitrogen [Mass/Vol] 11 mg/dL 7 - 20 mg/d L [employer] Work Phone: Test Performed by [facility], [address] [place] [address] [employer] Work Phone: CBC auto differentialOrdered By: Jason Arora on 12-27-2019 Absolute Baso # 0.1 10*3/uL 0 - 0.2 10*3/uL [employer] Work Phone: 1 Absolute Neut # 3.2 10*3/uL 1.8 - 7 10*3/uL [employer] Work Phone: Basophils/100 WBC (Bld) 0.8 % 0 - 2 % S [facility] Work Phone: Eosinophils (Bld) [#/Vol] 0.3 10*3/uL 0 - 0.5 10*3/uL [employer] Work Phone: Eosinophils/100 WBC (Bld) 5.0 % 1 - 6 % [employer] Work Phone: Erythrocyte distribution width (RBC) [Ratio] 14.3 % 11.5 - 14.5 % [employer] Work Phone: Granulocytes/100 WBC (Bld) 47.8 % 40 - 80 % [employer] Work Phone: Hematocrit (Bld) [Volume fraction] 38.7 % Low 40 - 52 % [employer] Work Phone: Hemoglobin (Bld) [Mass/Vol] 13.4 g/dL 13 - 18 g/dL [employer] Work Phone: Interpretation and review of laboratory results Abnormal [employer] Work Phone: Lymphocytes (Bld) [#/Vol] 2.6 10*3/uL 1 - 4.3 10*3/uL [employer] Work Phone: Lymphocytes/100 WBC (Bld) 39.0 % 20 - 40 % [employer] Work Phone: MCH (RBC) [Entitic mass] 33.1 pg 26 - 34 pg [employer] Work Phone: 1 MCHC 34.6 % 32 - 36 % [employer] Work Phone: 1 MCV (RBC) [Entitic vol] 95.5 fL 80 - 98 fL [facility] Work Phone: 1 Monocytes (Bld) [#/Vol] 0.5 10*3/uL 0 - 0.8 10*3/uL [employer] Work Phone: 1 Monocytes/100 WBC (Bld) 7.4 % 2 - 10 % [facility] Work Phone: 1 Platelet mean volume (Bld) [Entitic vol] 7.5 fL 7.4 - 10.4 fL [employer] Work Phone: 1 Platelets (Bld) [#/Vol] 343 10*3/uL 140 - 440 10*3/uL [employer] Work Phone: 1 RBC (Bld) [#/Vol] 4.06 10*6/uL Low 4.4 - 5.9 10*6/uL [employer] Work Phone: [phone] WBC (Bld) [#/Vol] 6.8 10*3/uL 3.6 - 10.7 10*3/uL [employer] Work Phone: [phone] Test Performed by [facility], [address] [place] [address] [employer] Work Phone: [phone] CT 3D RECONSTRUCTIONOrdered By: Ana Luisa Estrada on 12-27-2019 Patient Name: EDUARDO HAMMONDS ---CT--- Exam Date/Time 12/27/2019 10:35:[address] 3D Reconstruction Ordering Physician [id number] ANA LUISA HARRIS Accession Number [id number] CPT4 Codes 51202 () Reason For Exam add to ct max face Report MAXILLOFACIAL CT SCAN WITH IV CONTRAST CLINICAL INDICATION: s/p mandible fracture and subsequent infection and washout please also do 3d reconstruction TECHNIQUE: Maxillofacial CT scan with IV contrast. Multiplanar reformations. I personally generated 3-D reconstructions on a separate workstation. COMPARISON: None FINDINGS: There is an ununited comminuted fracture involving the posterior aspect of the left mandibular body. Some marginal bone destruction noted compatible with history of osteomyelitis. There is some periosteal reaction noted. Extensive overlying soft tissue swelling. No discrete abscess seen. Mild submandibular adenopathy on the left. Extensive dental disease including periapical lucencies and dental caries. IMPRESSION: 1. Ununited comminuted fracture of the posterior left mandibular body with some marginal destruction compatible with history of osteomyelitis. Overlying soft tissue swelling seen but no abscess apparent. 2. Extensive dental disease. Report Dictated on --- Final --- Dictated: 12/27/2019 6:07 pm Dictating Physician: MD STROUD JOHN R Signed Date and Time: 12/27/2019 6:15 pm Signed by: MD STROUD JOHN R Transcribed Date and Time: 12/27/2019 6:07 [facility] Work Phone: [place], [facility] Incoming Rad[facility] Results From [facility] - 12/27/2019 6:16 PM EST Patient Name: EDUARDO HAMMONDS ---CT--- Exam Date/Time 12/27/2019 10:35:[address] 3D Reconstruction Ordering Physician [id number] LUISA HARMAN Accession Number [id number] CPT4 Codes 05970 () Reason For Exam add to ct max face Report MAXILLOFACIAL CT SCAN WITH IV CONTRAST CLINICAL INDICATION: s/p mandible fracture and subsequent infection and washout please also do 3d reconstruction TECHNIQUE: Maxillofacial CT scan with IV contrast. Multiplanar reformations. I personally generated 3-D reconstructions on a separate workstation. COMPARISON: None FINDINGS: There is an ununited comminuted fracture involving the posterior aspect of the left mandibular body. Some marginal bone destruction noted compatible with history of osteomyelitis. There is some periosteal reaction noted. Extensive overlying soft tissue swelling. No discrete abscess seen. Mild submandibular adenopathy on the left. Extensive dental disease including periapical lucencies and dental caries. IMPRESSION: 1. Ununited comminuted fracture of the posterior left mandibular body with some marginal destruction compatible with history of osteomyelitis. Overlying soft tissue swelling seen but no abscess apparent. 2. Extensive dental disease. Report Dictated on --- Final --- Dictated: 12/27/2019 6:07 pm Dictating Physician: MD STROUD JOHN R Signed Date and Time: 12/27/2019 6:15 pm Signed by: MD STROUD JOHN R Transcribed Date and Time: 12/27/2019 6:07 [facility] Work Phone: CT 3D Reconstructionon 12-27 CT 3D Reconstruction Patient Name: EDUARDO HAMMONDS CT Exam Date/Time 12/27/2019 10:35:[address] 3D Reconstruction Ordering Physician [id number] ANA LUISA HARRIS Accession Number [id number] CPT4 Codes 80253 () Reason For Exam add to ct max face Report MAXILLOFACIAL CT SCAN WITH IV CONTRAST CLINICAL INDICATION: s/p mandible fracture and subsequent infection and washout please also do 3d reconstruction TECHNIQUE: Maxillofacial CT scan with IV contrast. Multiplanar reformations. I personally generated 3-D reconstructions on a separate workstation. COMPARISON: None FINDINGS: There is an ununited comminuted fracture involving the posterior aspect of the left mandibular body. Some marginal bone destruction noted compatible with history of osteomyelitis. There is some periosteal reaction noted. Extensive overlying soft tissue swelling. No discrete abscess seen. Mild submandibular adenopathy on the left. Extensive dental disease including periapical lucencies and dental caries. IMPRESSION: 1. Ununited comminuted fracture of the posterior left mandibular body with some marginal destruction compatible with history of osteomyelitis. Overlying soft tissue swelling seen but no abscess apparent. 2. Extensive dental disease. Report Dictated on Final Dictated: 12/27/2019 6:07 pm Dictating Physician: MD STROUD JOHN R Signed Date and Time: 12/27/2019 6:15 pm Signed by: MD STROUD JOHN R Transcribed Date and Time: 12/27/2019 6:07 Normal [facility] CT MAXILLOFACIAL W CONTRASTO rdered By: Ana Luisa Estrada on 12-27-2019 Patient Name: EDUARDO HAMMONDS ---CT--- Exam Date/Time 12/27/2019 10:35:[address] Maxillofacial w/ Contrast Ordering Physician Yvonne KIMBERLY ANA LUISA Accession Number [id number] CPT4 Codes 93520 (), Q9967 (CT ISOVUE 370MG/[id number] &ML&1) Reason For Exam s/p mandible fracture and subsequent infection and washout please also do 3d reconstruction Report MAXILLOFACIAL CT SCAN WITH IV CONTRAST CLINICAL INDICATION: s/p mandible fracture and subsequent infection and washout please also do 3d reconstruction TECHNIQUE: Maxillofacial CT scan with IV contrast. Multiplanar reformations. I personally generated 3-D reconstructions on a separate workstation. COMPARISON: None FINDINGS: There is an ununited comminuted fracture involving the posterior aspect of the left mandibular body. Some marginal bone destruction noted compatible with history of osteomyelitis. There is some periosteal reaction noted. Extensive overlying soft tissue swelling. No discrete abscess seen. Mild submandibular adenopathy on the left. Extensive dental disease including periapical lucencies and dental caries. IMPRESSION: 1. Ununited comminuted fracture of the posterior left mandibular body with some marginal destruction compatible with history of osteomyelitis. Overlying soft tissue swelling seen but no abscess apparent. 2. Extensive dental disease. Report Dictated on --- Final --- Dictated: 12/27/2019 6:07 pm Dictating Physician: MD STROUD JOHN R Signed Date and Time: 12/27/2019 6:15 pm Signed by: MD STROUD JOHN R Transcribed Date and Time: 12/27/2019 6:07 [facility] Work Phone: [place], [facility] In[facility] Results From [facility] - 12/27/2019 6:16 PM EST Patient Name: EDUARDO HAMMONDS ---CT--- Exam Date/Time 12/27/2019 10:35:[address] Maxillofacial w/ Contrast Ordering Physician ANA LUISA SCOTT Accession Number [id number] CPT4 Codes 75277 (), Q9967 (CT ISOVUE 370MG/[id number] &ML&1) Reason For Exam s/p mandible fracture and subsequent infection and washout please also do 3d reconstruction Report MAXILLOFACIAL CT SCAN WITH IV CONTRAST CLINICAL INDICATION: s/p mandible fracture and subsequent infection and washout please also do 3d reconstruction TECHNIQUE: Maxillofacial CT scan with IV contrast. Multiplanar reformations. I personally generated 3-D reconstructions on a separate workstation. COMPARISON: None FINDINGS: There is an ununited comminuted fracture involving the posterior aspect of the left mandibular body. Some marginal bone destruction noted compatible with history of osteomyelitis. There is some periosteal reaction noted. Extensive overlying soft tissue swelling. No discrete abscess seen. Mild submandibular adenopathy on the left. Extensive dental disease including periapical lucencies and dental caries. IMPRESSION: 1. Ununited comminuted fracture of the posterior left mandibular body with some marginal destruction compatible with history of osteomyelitis. Overlying soft tissue swelling seen but no abscess apparent. 2. Extensive dental disease. Report Dictated on --- Final --- Dictated: 12/27/2019 6:07 pm Dictating Physician: MD STROUD JOHN R Signed Date and Time: 12/27/2019 6:15 pm Signed by: MD STROUD JOHN R Transcribed Date and Time: 12/27/2019 6:07 [facility] Work Phone: CT Maxillofacial w/ Contrast on 12-27-2019 CT Maxillofacial w/ Contrast Patient Name: EDUARDO HAMMONDS CT Exam Date/Time 12/27/2019 10:35:[address] Maxillofacial w/ Contrast Ordering Physician [id number] LUISA HARMAN Accession Number [id number] CPT4 Codes 43668 (), Q9967 (CT ISOVUE [id number]) Reason For Exam s/p mandible fracture and subsequent infection and washout please also do 3d reconstruction Report MAXILLOFACIAL CT SCAN WITH IV CONTRAST CLINICAL INDICATION: s/p mandible fracture and subsequent infection and washout please also do 3d reconstruction TECHNIQUE: Maxillofacial CT scan with IV contrast. Multiplanar reformations. I personally generated 3-D reconstructions on a separate workstation. COMPARISON: None FINDINGS: There is an ununited comminuted fracture involving the posterior aspect of the left mandibular body. Some marginal bone destruction noted compatible with history of osteomyelitis. There is some periosteal reaction noted. Extensive overlying soft tissue swelling. No discrete abscess seen. Mild submandibular adenopathy on the left. Extensive dental disease including periapical lucencies and dental caries. IMPRESSION: 1. Ununited comminuted fracture of the posterior left mandibular body with some marginal destruction compatible with history of osteomyelitis. Overlying soft tissue swelling seen but no abscess apparent. 2. Extensive dental disease. Report Dictated on Final Dictated: 12/27/2019 6:07 pm Dictating Physician: MD STROUD JOHN R Signed Date and Time: 12/27/2019 6:15 pm Signed by: MD STROUD JOHN R Transcribed Date and Time: 12/27/2019 6:07 Normal [facility] Hemogram w/ Autodiffon 12-27 Abs Baso Cnt 0.1 10*3/uL Normal 0.0-0.2 [facility] Comment on above: Performed By: #### H EMDF, BMP3M, LACT3, PCAL #### [address] Abs Neutrophile Cnt 3.2 10*3/uL Normal 1.8-7.0 [facility] Comment on above: Performed By: #### H EMDF, BMP3M, LACT3, PCAL #### [address] [address] Basophils/100 WBC (Bld) 0.8 % Normal 0.0-2.0 S [facility] Comment on above: Performed By: #### H EMDF, BMP3M, LACT3, PCAL #### [address] [address] Eosinophils (Bld) [#/Vol] 0.3 10*3/uL Normal 0.0-0.5 [facility] Comment on above: Performed By: #### H EMDF, BMP3M, LACT3, PCAL #### [address] [place] Eosinophils/100 WBC (Bld) 5.0 % Normal 1.0-6.0 [facility] Comment on above: Performed By: #### H EMDF, BMP3M, LACT3, PCAL #### [address] Erythrocyte distribution width (RBC) [Ratio] 14.3 % Normal 11.5-14.5 [facility] Comment on above: Performed By: #### H EMDF, BMP3M, LACT3, PCAL #### [address] Granulocytes/100 WBC (Bld) 47.8 % Normal 40.0-80.0 [facility] Comment on above: Performed By: #### H EMDF, BMP3M, LACT3, PCAL #### [address] Hematocrit (Bld) [Volume fraction] 38.7 % Low 40.0-52.0 [facility] Comment on above: Performed By: #### H EMDF, BMP3M, LACT3, PCAL #### [address] Hemoglobin (Bld) [Mass/Vol] 13.4 g/dL Normal 13.0-18.0 [facility] Comment on above: Performed By: #### H EMDF, BMP3M, LACT3, PCAL #### [address] Lymphocytes (Bld) [#/Vol] 2.6 10*3/uL Normal 1.0-4.3 [facility] Comment on above: Performed By: #### H EMDF, BMP3M, LACT3, PCAL #### [address] Lymphocytes/100 WBC (Bld) 39.0 % Normal 20.0-40.0 [facility] Comment on above: Performed By: #### H EMDF, BMP3M, LACT3, PCAL #### [address], [place] MCH (RBC) [Entitic mass] 33.1 pg Normal 26.0-34.0 [facility] Comment on above: Performed By: #### H EMDF, BMP3M, LACT3, PCAL #### [address] MCHC (RBC) [Mass/Vol] 34.6 % Normal 32.0-36.0 [facility] Comment on above: Performed By: #### H EMDF, BMP3M, LACT3, PCAL #### [address] MCV (RBC) [Entitic vol] 95.5 fL Normal 80.0-98.0 [facility] Comment on above: Performed By: #### H EMDF, BMP3M, LACT3, PCAL #### [address] Monocytes (Bld) [#/Vol] 0.5 10*3/uL Normal 0.0-0.8 [facility] Comment on above: Performed By: #### H EMDF, BMP3M, LACT3, PCAL #### [address] Monocytes/100 WBC (Bld) 7.4 % Normal 2.0-10.0 [facility] Comment on above: Performed By: #### H EMDF, BMP3M, LACT3, PCAL #### [address] Platelet mean volume (Bld) [Entitic vol] 7.5 fL Normal 7.4-10.4 [facility] Comment on above: Performed By: #### H EMDF, BMP3M, LACT3, PCAL #### [address] Platelets (Bld) [#/Vol] 343 10*3/uL Normal 140-440 [facility] Comment on above: Performed By: #### H EMDF, BMP3M, LACT3, PCAL #### [address] RBC (Bld) [#/Vol] 4.06 10*6/uL Low 4.40-5.90 [facility] Comment on above: Performed By: #### H EMDF, BMP3M, LACT3, PCAL #### [address] WBC (Bld) [#/Vol] 6.8 10*3/uL Normal 3.6-10.7 [facility] Comment on above: Performed By: #### H EMDF, BMP3M, LACT3, PCAL #### [address] Basic Metabolic Panelon -2 Calcium [Mass/Vol] 8.4 mg/dL Normal 8.4-10.4 [facility] Comment on above: Performed By: #### H EMDF, BMP3M, LACT3, PCAL #### [address] Anion gap [Moles/Vol] 6 Normal [facility] Comment on above: Performed By: #### H EMDF, BMP3M, LACT3, PCAL #### [address] CO2 [Moles/Vol] 26 mmol/L Normal 22-30 [facility] Comment on above: Performed By: #### H EMDF, BMP3M, LACT3, PCAL #### [address] Creatinine [Mass/Vol] 0.64 mg/dL Normal 0.52-1.25 [facility] Comment on above: Performed By: #### H EMDF, BMP3M, LACT3, PCAL #### [address] GFR/1.73 sq M predicted among blacks MDRD (S/P/Bld) [Vol rate/Area] mL/min/{1.73_m2} Normal >60 [facility] Comment on above: Performed By: #### H EMDF, BMP3M, LACT3, PCAL #### [facility] [address] [place] [address] GFR/1.73 sq M predicted among non-blacks MDRD (S/P/Bld) [Vol rate/Area] mL/min/{1.73_m2} Normal >60 [facility] Comment on above: Result Comment: Sour ce- MDRD equation with creatinine calibration to IDMS(NKDEP) eGFR not recommended for drug dose adjustment Performed By: #### H EMDF, BMP3M, LACT3, PCAL #### [facility] [address] [place], [place] Glucose [Mass/Vol] 112 mg/dL High 70-100 [facility] Comment on above: Performed By: #### H EMDF, BMP3M, LACT3, PCAL #### [address] [address] [address] [place], [place] Urea nitrogen [Mass/Vol] 13 mg/dL Normal 7-20 [facility] Comment on above: Performed By: #### H EMDF, BMP3M, LACT3, PCAL #### [facility] [address] [place], [place] Potassium [Moles/Vol] 4.3 mmol/L Normal 3.5-5.1 [facility] Comment on above: Performed By: #### H EMDF, BMP3M, LACT3, PCAL #### [facility] [address] [place] [address] Chloride [Moles/Vol] 106 mmol/L Normal 98-107 [facility] Comment on above: Performed By: #### H EMDF, BMP3M, LACT3, PCAL #### [facility] [address] [place], [place] Sodium [Moles/Vol] 138 mmol/L Normal 135-145 [facility] Comment on above: Performed By: #### H EMDF, BMP3M, LACT3, PCAL #### [facility] [address] [place], [place] Basic Metabolic Panel w/ Ref nadia to MGOrdered By: Jason Arora on 12-26-2019 Anion gap [Moles/Vol] 6 mmol/L [facility] Work Phone: [phone] Calcium [Mass/Vol] 8.4 mg/dL 8.4 - 10. 4 mg/dL [facility] Work Phone: Chloride [Moles/Vol] 106 mmol/L 98 - 10 7 mmol/L [facility] Work Phone: CO2 [Moles/Vol] 26 mmol/L 22 - 30 mmol/L [facility] Work Phone: Creatinine [Mass/Vol] 0.64 mg/dL 0.52 - 1.25 mg/dL [facility] Work Phone: EGFR IF NonAfrican Nigerian >60.0 >60 mL/min [facility] Work Phone: Comment on above: Source- MDRD equatio n with creatinine calibration to IDMS(NKDEP) eGFR not recommended for drug dose adjustment GFR/1.73 sq M.predicted among blacks MDRD (S/P/Bld) [Vol rate/Area] mL/min/{1.73_m2} >60 mL/min [facility] Work Phone: Glucose [Mass/Vol] 112 mg/dL High 70 - 100 mg/dL [facility] Work Phone: Potassium [Moles/Vol] 4.3 mmol/L 3.5 - 5.1 mmol/L [facility] Work Phone: Sodium [Moles/Vol] 138 mmol/L 135 - 145 mmol/L [facility] Work Phone: Urea nitrogen [Mass/Vol] 13 mg/dL 7 - 20 mg/d L [facility] Work Phone: CBC auto differentialOrdered By: Jason Arora on 12-26-2019 Absolute Baso # 0.0 10*3/uL 0 - 0.2 10*3/uL [facility] Work Phone: [phone] Absolute Neut # 9.2 10*3/uL High 1.8 - 7 10*3/uL [facility] Work Phone: [phone] Basophils/100 WBC (Bld) 0.4 % 0 - 2 % [facility] Work Phone: 1 22 Eosinophils (Bld) [#/Vol] 0.2 10*3/uL 0 - 0.5 10*3/uL [facility] Work Phone: 22 Eosinophils/100 WBC (Bld) 1.7 % 1 - 6 % [facility] Work Phone: 1 Erythrocyte distribution width (RBC) [Ratio] 14.4 % 11.5 - 14.5 % [facility] Work Phone: 1 22 Granulocytes/100 WBC (Bld) 70.7 % 40 - 80 % [facility] Work Phone: 1 Hematocrit (Bld) [Volume fraction] 37.5 % Low 40 - 52 % [facility] Work Phone: Hemoglobin (Bld) [Mass/Vol] 12.8 g/dL Low 13 - 18 g/dL [facility] Work Phone: Interpretation and review of laboratory results Abnormal [facility] Work Phone: 22 Lymphocytes (Bld) [#/Vol] 2.8 10*3/uL 1 - 4.3 10*3/uL [facility] Work Phone: 1 22 Lymphocytes/100 WBC (Bld) 21.4 % 20 - 40 % [facility] Work Phone: MCH (RBC) [Entitic mass] 33.2 pg 26 - 34 pg [facility] Work Phone: 22 MCHC 34.1 % 32 - 36 % [facility] Work Phone: 22 MCV (RBC) [Entitic vol] 97.4 fL 80 - 98 fL [facility] Work Phone: 22 Monocytes (Bld) [#/Vol] 0.8 10*3/uL 0 - 0.8 10*3/uL [facility] Work Phone: 1 22 Monocytes/100 WBC (Bld) 5.8 % 2 - 10 % [facility] Work Phone: Platelet mean volume (Bld) [Entitic vol] 7.4 fL 7.4 - 10.4 fL [facility] Work Phone: Platelets (Bld) [#/Vol] 365 10*3/uL 140 - 440 10*3/uL [facility] Work Phone: RBC (Bld) [#/Vol] 3.85 10*6/uL Low 4.4 - 5.9 10*6/uL [facility] Work Phone: WBC (Bld) [#/Vol] 13.0 10*3/uL High 3.6 - 10.7 10*3/uL [facility] [employer] Work Phone: Test Performed by [facility] [employer] [facility], [address] [place] [address] [facility] [employer] Work Phone: [phone] Hemogram w/ Autodiffon 12-26 Abs Baso Cnt 0.0 10*3/uL Normal 0.0-0.2 [facility] Comment on above: Performed By: #### H EMDF, BMP3M, LACT3, PCAL #### [address] [address] Abs Neutrophile Cnt 9.2 10*3/uL High 1.8-7.0 [facility] Comment on above: Performed By: #### H EMDF, BMP3M, LACT3, PCAL #### [address] [address] Basophils/100 WBC (Bld) 0.4 % Normal 0.0-2.0 [facility] Comment on above: Performed By: #### H EMDF, BMP3M, LACT3, PCAL #### [address] [address] Eosinophils (Bld) [#/Vol] 0.2 10*3/uL Normal 0.0-0.5 [facility] Comment on above: Performed By: #### H EMDF, BMP3M, LACT3, PCAL #### [address] [address] Eosinophils/100 WBC (Bld) 1.7 % Normal 1.0-6.0 [facility] Comment on above: Performed By: #### H EMDF, BMP3M, LACT3, PCAL #### [address] [address] [address] [address] [place], [place] Erythrocyte distribution width (RBC) [Ratio] 14.4 % Normal 11.5-14.5 [facility] Comment on above: Performed By: #### H EMDF, BMP3M, LACT3, PCAL #### [address] [address] [place], [place] Granulocytes/100 WBC (Bld) 70.7 % Normal 40.0-80.0 [facility] Comment on above: Performed By: #### H EMDF, BMP3M, LACT3, PCAL #### [address] [address] [place], [place] Hematocrit (Bld) [Volume fraction] 37.5 % Low 40.0-52.0 [facility] Comment on above: Performed By: #### H EMDF, BMP3M, LACT3, PCAL #### [address] [address] [address] [place], [place] Hemoglobin (Bld) [Mass/Vol] 12.8 g/dL Low 13.0-18.0 [facility] Comment on above: Performed By: #### H EMDF, BMP3M, LACT3, PCAL #### [address] [address] [place], [place] Lymphocytes (Bld) [#/Vol] 2.8 10*3/uL Normal 1.0-4.3 [facility] Comment on above: Performed By: #### H EMDF, BMP3M, LACT3, PCAL #### [address] [address] [address] [place], [place] Lymphocytes/100 WBC (Bld) 21.4 % Normal 20.0-40.0 [facility] Comment on above: Performed By: #### H EMDF, BMP3M, LACT3, PCAL #### [address] [address] [place], [place] MCH (RBC) [Entitic mass] 33.2 pg Normal 26.0-34.0 [facility] Comment on above: Performed By: #### H EMDF, BMP3M, LACT3, PCAL #### [address] [address] [address] [place] MCHC (RBC) [Mass/Vol] 34.1 % Normal 32.0-36.0 [facility] Comment on above: Performed By: #### H EMDF, BMP3M, LACT3, PCAL #### [address] [address] [address] [place], [place] MCV (RBC) [Entitic vol] 97.4 fL Normal 80.0-98.0 [facility] Comment on above: Performed By: #### H EMDF, BMP3M, LACT3, PCAL #### [address] [address] [address] [address] [place], [place] Monocytes (Bld) [#/Vol] 0.8 10*3/uL Normal 0.0-0.8 [facility] Comment on above: Performed By: #### H EMDF, BMP3M, LACT3, PCAL #### [address] [address] [address] [place], [place] Monocytes/100 WBC (Bld) 5.8 % Normal 2.0-10.0 [facility] Comment on above: Performed By: #### H EMDF, BMP3M, LACT3, PCAL #### [address] [address] [address] [address] [place], [place] Platelet mean volume (Bld) [Entitic vol] 7.4 fL Normal 7.4-10.4 [facility] Comment on above: Performed By: #### H EMDF, BMP3M, LACT3, PCAL #### [address] [address] [address] [place], [place] Platelets (Bld) [#/Vol] 365 10*3/uL Normal 140-440 [facility] Comment on above: Performed By: #### H EMDF, BMP3M, LACT3, PCAL #### [address] [address] [place], [place] RBC (Bld) [#/Vol] 3.85 10*6/uL Low 4.40-5.90 [facility] Comment on above: Performed By: #### H EMDF, BMP3M, LACT3, PCAL #### [address] [address] [address] [address] [place], [place] WBC (Bld) [#/Vol] 13.0 10*3/uL High 3.6-10.7 [facility] Comment on above: Performed By: #### H EMDF, BMP3M, LACT3, PCAL #### [address] [address] [address] [address] [place], [place] Hepatic Functionon 0 ALT [Catalytic activity/Vol] 275 U/L High 13-69 [facility] Comment on above: Performed By: #### H EMDF, BMP3M, LACT3, PCAL #### [address] [address] [address] [address] [place], [place] ALP [Catalytic activity/Vol] 179 U/L High 38-126 [facility] Comment on above: Performed By: #### H EMDF, BMP3M, LACT3, PCAL #### [address] [address] [address] [place], [place] AST [Catalytic activity/Vol] 170 U/L High 15-46 [facility] Comment on above: Performed By: #### H EMDF, BMP3M, LACT3, PCAL #### [address] [address] [address] [address] [place], [place] Bilirubin [Mass/Vol] 0.3 mg/dL Normal 0.2-1.3 [facility] Comment on above: Performed By: #### H EMDF, BMP3M, LACT3, PCAL #### [address] [address] [address] [place], [place] Bilirubin.direct [Mass/Vol] 0.0 mg/dL Normal 0.0-0.3 [facility] Comment on above: Performed By: #### H EMDF, BMP3M, LACT3, PCAL #### [address] [address] [address] [address] [place], [place] Protein [Mass/Vol] 6.7 g/dL Normal 6.3-8.2 [facility] Comment on above: Performed By: #### H EMDF, BMP3M, LACT3, PCAL #### [facility] [employer] [place] [address] Albumin [Mass/Vol] 3.1 g/dL Low 3.5-5.0 [facility] Comment on above: Performed By: #### H EMDF, BMP3M, LACT3, PCAL #### [facility] [employer] [address] [address] Hepatic Function PanelOrdere d By: Duane Colon on 12-26-2019 Albumin [Mass/Vol] 3.1 g/dL Low 3.5 - 5 g/dL [facility] Work Phone: [phone] ALP [Catalytic activity/Vol] 179 U/L High 38 - 126 U/L [facility] Work Phone: [phone] [Catalytic activity/Vol] 275 U/L High 13 - 69 U/L [facility] Work Phone: [phone] [Catalytic activity/Vol] 170 U/L High 15 - 46 U/L [facility] Work Phone: [phone] Bilirubin [Mass/Vol] 0.3 mg/dL 0.2 - 1 .3 mg/dL [facility] Work Phone: [phone] Bilirubin.indirect [Mass/Vol] 0.0 mg/dL 0 - 0.3 mg/dL [facility] Work Phone: [phone] Protein [Mass/Vol] 6.7 g/dL 6.3 - 8.2 g/dL [facility] Work Phone: [phone] No Panel InformationOrdered By: Duane Colon on 12-26-2019 Interpretation and review of laboratory results Abnormal [facility] Work Phone: [phone] Test Performed by [facility] [employer] [facility], [address] [place] [id number] [facility] Work Phone: [phone] Basic Metabolic Panelon 12-03 Anion gap [Moles/Vol] 12 Normal [facility] Comment on above: Performed By: #### H EMDF, BMP3M #### [facility] [employer] [facility] [place] [address] [place], [place] Calcium [Mass/Vol] 9.0 mg/dL Normal 8.4-10.4 [facility] Comment on above: Performed By: #### H CHANDRIKA BMP3M #### [place] [address] [address] [place], [place] CO2 [Moles/Vol] 24 mmol/L Normal 22-30 [facility] Comment on above: Performed By: #### H CHANDRIKA BMP3M #### [address] [address] [address] [place], [place] Glucose [Mass/Vol] 155 mg/dL High 70-100 [facility] Comment on above: Performed By: #### H CHANDRIKA BMP3M #### [address] [address] [place], [place] Urea nitrogen [Mass/Vol] 11 mg/dL Normal 7-20 [facility] Comment on above: Performed By: #### Leonie COBOS BMP3M #### [address] [address] [place], [place] GFR/1.73 sq M predicted among non-blacks MDRD (S/P/Bld) [Vol rate/Area] mL/min/{1.73_m2} Normal >60 [facility] Comment on above: Result Comment: Sour ce- MDRD equation with creatinine calibration to IDMS(NKDEP) eGFR not recommended for drug dose adjustment Performed By: #### Leonie COBOS BMP3M #### [address] [address] [address] [address] [place], [place] Potassium [Moles/Vol] 4.1 mmol/L Normal 3.5-5.1 [facility] Comment on above: Performed By: #### H CHANDRIKA BMP3M #### [address] [address] [address] [place], [place] Sodium [Moles/Vol] 137 mmol/L Normal 135-145 [facility] Comment on above: Performed By: #### H CHANDRIKA BMP3M #### [address] [address] [address] [place], [place] Chloride [Moles/Vol] 101 mmol/L Normal 98-107 [facility] Comment on above: Performed By: #### H EMDF, BMP3M #### [facility] [place] [address] Basic Metabolic PanelOrdered By: Jason Arora on 12-25-2019 Creatinine [Mass/Vol] 0.62 mg/dL Normal 0.52-1.25 [facility] Work Phone: [phone] Comment on above: Performed By: #### H EMDF, BMP3M #### [facility] [employer] [facility] [address] [place] GFR/1.73 sq M.predicted among blacks MDRD (S/P/Bld) [Vol rate/Area] mL/min/{1.73_m2} Normal >60 [facility] Work Phone: [phone] Comment on above: Performed By: #### H EMDF, BMP3M #### [facility] [place] [address] Basic Metabolic Panel w/ Ref nadia to MGOrdered By: Jason Arora on 12-25-2019 Anion gap [Moles/Vol] 12 mmol/L [facility] Work Phone: [phone] Calcium [Mass/Vol] 9.0 mg/dL 8.4 - 10. 4 mg/dL [facility] Work Phone: [phone] Chloride [Moles/Vol] 101 mmol/L 98 - 10 7 mmol/L [facility] Work Phone: [phone] CO2 [Moles/Vol] 24 mmol/L 22 - 30 mmol/L [facility] Work Phone: [phone] EGFR IF NonAfrican Nigerian >60.0 >60 mL/min [facility] Work Phone: [phone] Comment on above: Source- MDRD equatio n with creatinine calibration to IDMS(NKDEP) eGFR not recommended for drug dose adjustment Glucose [Mass/Vol] 155 mg/dL High 70 - 100 mg/dL [facility] Work Phone: [phone] Interpretation and review of laboratory results Abnormal [facility] Work Phone: [phone] Potassium [Moles/Vol] 4.1 mmol/L 3.5 - 5.1 mmol/L [facility] Work Phone: 1 Sodium [Moles/Vol] 137 mmol/L 135 - 145 mmol/L [facility] Work Phone: Urea nitrogen [Mass/Vol] 11 mg/dL 7 - 20 mg/d L [facility] Work Phone: 1 Test Performed by [facility], [address] [place] [address] [employer] Work Phone: CBC auto differentialOrdered By: Jason Arora on 12-25-2019 Absolute Baso # 0.1 10*3/uL 0 - 0.2 10*3/uL [facility] Work Phone: Absolute Neut # 8.9 10*3/uL High 1.8 - 7 10*3/uL [facility] Work Phone: Basophils/100 WBC (Bld) 0.6 % 0 - 2 % [facility] Work Phone: Eosinophils (Bld) [#/Vol] 0.0 10*3/uL 0 - 0.5 10*3/uL [facility] Work Phone: Eosinophils/100 WBC (Bld) 0.1 % Low 1 - 6 % [facility] Work Phone: Erythrocyte distribution width (RBC) [Ratio] 14.6 % High 11.5 - 14.5 % [employer] Work Phone: Granulocytes/100 WBC (Bld) 87.3 % High 40 - 80 % [employer] Work Phone: Hematocrit (Bld) [Volume fraction] 42.1 % 40 - 52 % [facility] Work Phone: Hemoglobin (Bld) [Mass/Vol] 14.6 g/dL 13 - 18 g/dL [facility] Work Phone: Interpretation and review of laboratory results Abnormal [employer] Work Phone: Lymphocytes (Bld) [#/Vol] 1.1 10*3/uL 1 - 4.3 10*3/uL [facility] Work Phone: Lymphocytes/100 WBC (Bld) 10.8 % Low 20 - 40 % [employer] Work Phone: 1() 22 MCH (RBC) [Entitic mass] 33.7 pg 26 - 34 pg [employer] Work Phone: 1() MCHC 34.6 % 32 - 36 % [employer] Work Phone: 1() MCV (RBC) [Entitic vol] 97.5 fL 80 - 98 fL [facility] Work Phone: 1() Monocytes (Bld) [#/Vol] 0.1 10*3/uL 0 - 0.8 10*3/uL [employer] Work Phone: 1() 22 Monocytes/100 WBC (Bld) 1.2 % Low 2 - 10 % [facility] Work Phone: 1() Platelet mean volume (Bld) [Entitic vol] 8.0 fL 7.4 - 10.4 fL [employer] Work Phone: 1() Platelets (Bld) [#/Vol] 368 10*3/uL 140 - 440 10*3/uL [employer] Work Phone: 1() RBC (Bld) [#/Vol] 4.32 10*6/uL Low 4.4 - 5.9 10*6/uL [employer] Work Phone: 1() 22 WBC (Bld) [#/Vol] 10.2 10*3/uL 3.6 - 10.7 10*3/uL [employer] Work Phone: 1() Test Performed by [facility], [address] [place] [id number] [place], [place] [id number] Work Phone: 1() 22 CULT./ST. BACTERIAon 020 CULT./ST. BACTERIA CULT./ST. BACTERIA --> Status: F Mixed skin liu present. STAIN GRAM --> Status: F Many polymorphonuclear cells/lpf. Few gram positive cocci. Rare gram positive bacilli. Few gram positive cocci. Rare gram positive bacilli. Normal [facility] Comment on above: Order Comment: Speci men collected in O.R.; received on swab. Performed By: #### H EMDF, BMP3M, LACT3, PCAL #### [facility] [address] [place] [address] Hemogram w/ Autodiffon 12-25 Abs Baso Cnt 0.1 10*3/uL Normal 0.0-0.2 [facility] Comment on above: Performed By: #### H EMDF BMP3M #### [facility] [address] [place], [place] Abs Neutrophile Cnt 8.9 10*3/uL High 1.8-7.0 [facility] Comment on above: Performed By: #### H EMDF BMP3M #### [place] [address] [address] [place], [place] Basophils/100 WBC (Bld) 0.6 % Normal 0.0-2.0 [facility] Comment on above: Performed By: #### H EMDF BMP3M #### [place] [address] [address] [place], [place] Eosinophils (Bld) [#/Vol] 0.0 10*3/uL Normal 0.0-0.5 [facility] Comment on above: Performed By: #### H EMDF BMP3M #### [address] [address] [address] [place], [place] Eosinophils/100 WBC (Bld) 0.1 % Low 1.0-6.0 [facility] Comment on above: Performed By: #### H EMDF BMP3M #### [address] [address] [place], [place] Erythrocyte distribution width (RBC) [Ratio] 14.6 % High 11.5-14.5 [facility] Comment on above: Performed By: #### H EMDF BMP3M #### [address] [address] [address] [place], [place] Granulocytes/100 WBC (Bld) 87.3 % High 40.0-80.0 [facility] Comment on above: Performed By: #### H EMDF, BMP3M #### [address] [address] [place], [place] Hematocrit (Bld) [Volume fraction] 42.1 % Normal 40.0-52.0 [facility] Comment on above: Performed By: #### H CHANDRIKA BMP3M #### [address] [address] [address] [place], [place] Hemoglobin (Bld) [Mass/Vol] 14.6 g/dL Normal 13.0-18.0 [facility] Comment on above: Performed By: #### Leonie COBOS BMP3M #### [address] [address] [place], [place] Lymphocytes (Bld) [#/Vol] 1.1 10*3/uL Normal 1.0-4.3 [facility] Comment on above: Performed By: #### H CHANDRIKA BMP3M #### [address] Lymphocytes/100 WBC (Bld) 10.8 % Low 20.0-40.0 [facility] Comment on above: Performed By: #### Leonie COBOS BMP3M #### [address] MCH (RBC) [Entitic mass] 33.7 pg Normal 26.0-34.0 [facility] Comment on above: Performed By: #### Leonie COBOS BMP3M #### [address] MCHC (RBC) [Mass/Vol] 34.6 % Normal 32.0-36.0 [facility] Comment on above: Performed By: #### H CHANDRIKA BMP3M #### [place] [address] [address] [place], [place] MCV (RBC) [Entitic vol] 97.5 fL Normal 80.0-98.0 [facility] Comment on above: Performed By: #### H CHANDRIKA BMP3M #### [address] Monocytes (Bld) [#/Vol] 0.1 10*3/uL Normal 0.0-0.8 [facility] Comment on above: Performed By: #### Leonie COBOS BMP3M #### [place] [address] [address] [place], [place] Monocytes/100 WBC (Bld) 1.2 % Low 2.0-10.0 [facility] Comment on above: Performed By: #### Leonie COBOS BMP3M #### [facility] [address] [place], [place] Platelet mean volume (Bld) [Entitic vol] 8.0 fL Normal 7.4-10.4 [facility] Comment on above: Performed By: #### H CHANDRIKA BMP3M #### [facility] [address] [place], [place] Platelets (Bld) [#/Vol] 368 10*3/uL Normal 140-440 [facility] Comment on above: Performed By: #### H CHANDRIKA BMP3M #### [place] [address] [address] [place], [place] RBC (Bld) [#/Vol] 4.32 10*6/uL Low 4.40-5.90 [facility] Comment on above: Performed By: #### H CHANDRIKA BMP3M #### [facility] [address] [place], [place] WBC (Bld) [#/Vol] 10.2 10*3/uL Normal 3.6-10.7 [facility] Comment on above: Performed By: #### H CHANDRIKA BMP3M #### [address] [address] [address] [place], [place] Acute Hepatitis Panelon - Hep A Virus Ab,IgM DETECTED Abnormal Not-Detected [facility] Comment on above: Performed By: #### H ELZBIETA HIV4 #### [place] [address] [address] [place], [place] Hep B Core IgM NOT DETECTED Normal Not-Detected [facility] [place] Comment on above: Performed By: #### H ELZBIETA HIV4 #### [place] [address] [address] [place], [place] Hep C Antibody DETECTED Abnormal Not-Detected [facility] Comment on above: Result Comment: Ashly ents with DETECTED Hepatitis C Ab results should have a new specimen submitted for supplemental testing with a Hepatitis C Quantitative RNA assay (viral load), if clinically indicated. Performed By: #### H ELZBIETA HIV4 #### [place] [address] [address] [place], [place] Hep B Surface Ag NOT DETECTED Normal Not-Detected [facility] Comment on above: Performed By: #### H ELZBIETA HIV4 #### [place] [address] [address] [place], [place] Basic Metabolic Panelon 01-2 Calcium [Mass/Vol] 8.8 mg/dL Normal 8.4-10.4 [facility] [place] Comment on above: Performed By: #### H EMDF, BMP3M, LACT3, PCAL #### [place] [address] [address] [place], [place] Glucose [Mass/Vol] 113 mg/dL High 70-100 [facility] [place] Comment on above: Performed By: #### H EMDF, BMP3M, LACT3, PCAL #### [place] [address] [address] [place], [place] Urea nitrogen [Mass/Vol] 10 mg/dL Normal 7-20 [facility] [place] Comment on above: Performed By: #### H EMDF, BMP3M, LACT3, PCAL #### [place] [address] [address] [place], [place] Anion gap [Moles/Vol] 7 Normal [facility] Comment on above: Performed By: #### H EMDF, BMP3M, LACT3, PCAL #### [place] [address] [address] [place], [place] CO2 [Moles/Vol] 27 mmol/L Normal 22-30 [facility] Comment on above: Performed By: #### H EMDF, BMP3M, LACT3, PCAL #### [address] [place], [place] Creatinine [Mass/Vol] 0.62 mg/dL Normal 0.52-1.25 [facility] Comment on above: Performed By: #### H EMDF, BMP3M, LACT3, PCAL #### [address] [address] [place], [place] GFR/1.73 sq M predicted among blacks MDRD (S/P/Bld) [Vol rate/Area] mL/min/{1.73_m2} Normal >60 [facility] Comment on above: Performed By: #### H EMDF, BMP3M, LACT3, PCAL #### [address] [place], [place] GFR/1.73 sq M predicted among non-blacks MDRD (S/P/Bld) [Vol rate/Area] mL/min/{1.73_m2} Normal >60 [facility] Comment on above: Result Comment: Sour ce- MDRD equation with creatinine calibration to IDMS(NKDEP) eGFR not recommended for drug dose adjustment Performed By: #### H EMDF, BMP3M, LACT3, PCAL #### [address] [place], [place] Chloride [Moles/Vol] 102 mmol/L Normal 98-107 [facility] Comment on above: Performed By: #### H EMDF, BMP3M, LACT3, PCAL #### [address] [place], [place] Potassium [Moles/Vol] 3.7 mmol/L Normal 3.5-5.1 [facility] Comment on above: Performed By: #### H EMDF, BMP3M, LACT3, PCAL #### [address] [place], [place] Sodium [Moles/Vol] 136 mmol/L Normal 135-145 [facility] Comment on above: Performed By: #### H EMDF, BMP3M, LACT3, PCAL #### [address] [place], [place] Basic Metabolic Panel w/ Ref nadia to MGOrdered By: Jason Arora on 12-24-2019 Anion gap [Moles/Vol] 7 mmol/L [facility] Work Phone: Calcium [Mass/Vol] 8.8 mg/dL 8.4 - 10. 4 mg/dL [facility] Work Phone: [phone] Chloride [Moles/Vol] 102 mmol/L 98 - 10 7 mmol/L [facility] Work Phone: [phone] [Moles/Vol] 27 mmol/L 22 - 30 mmol/L [facility] Work Phone: [phone] Creatinine [Mass/Vol] 0.62 mg/dL 0.52 - 1.25 mg/dL [facility] Work Phone: [phone] IF NonAfrican Nigerian >60.0 >60 mL/min [facility] Work Phone: [phone] Comment on above: Source- MDRD equatio n with creatinine calibration to IDMS(NKDEP) eGFR not recommended for drug dose adjustment GFR/1.73 sq M.predicted among blacks MDRD (S/P/Bld) [Vol rate/Area] mL/min/{1.73_m2} >60 mL/min [facility] Work Phone: [phone] Glucose [Mass/Vol] 113 mg/dL High 70 - 100 mg/dL [facility] Work Phone: [phone] Interpretation and review of laboratory results Abnormal [facility] Work Phone: [phone] Potassium [Moles/Vol] 3.7 mmol/L 3.5 - 5.1 mmol/L [facility] Work Phone: [phone] Sodium [Moles/Vol] 136 mmol/L 135 - 145 mmol/L [facility] Work Phone: [phone] Urea nitrogen [Mass/Vol] 10 mg/dL 7 - 20 mg/d L [facility] Work Phone: [phone] Test Performed by [facility], [address] [place] [address] [facility] Work Phone: [phone] CBC auto differentialOrdered By: Jason Arora on 12-24-2019 Absolute Baso # 0.0 10*3/uL 0 - 0.2 10*3/uL [facility] Work Phone: [phone] Absolute Neut # 9.8 10*3/uL High 1.8 - 7 10*3/uL [facility] Work Phone: [phone] Basophils/100 WBC (Bld) 0.2 % 0 - 2 % [facility] Work Phone: [phone] Eosinophils (Bld) [#/Vol] 0.4 10*3/uL 0 - 0.5 10*3/uL [facility] Work Phone: [phone] Eosinophils/100 WBC (Bld) 3.2 % 1 - 6 % [facility] Work Phone: [phone] Erythrocyte distribution width (RBC) [Ratio] 14.5 % 11.5 - 14.5 % [facility] Work Phone: [phone] Granulocytes/100 WBC (Bld) 76.8 % 40 - 80 % [facility] Work Phone: [phone] Hematocrit (Bld) [Volume fraction] 39.9 % Low 40 - 52 % [facility] Work Phone: [phone] Hemoglobin (Bld) [Mass/Vol] 13.5 g/dL 13 - 18 g/dL [facility] Work Phone: [phone] Interpretation and review of laboratory results Abnormal [employer] Work Phone: [phone] Lymphocytes (Bld) [#/Vol] 1.8 10*3/uL 1 - 4.3 10*3/uL [facility] Work Phone: [phone] Lymphocytes/100 WBC (Bld) 14.0 % Low 20 - 40 % [facility] Work Phone: [phone] MCH (RBC) [Entitic mass] 32.6 pg 26 - 34 pg [facility] Work Phone: [phone] MCHC 33.9 % 32 - 36 % [facility] Work Phone: [phone] MCV (RBC) [Entitic vol] 96.0 fL 80 - 98 fL [facility] Work Phone: [phone] Monocytes (Bld) [#/Vol] 0.7 10*3/uL 0 - 0.8 10*3/uL [facility] Work Phone: [phone] Monocytes/100 WBC (Bld) 5.8 % 2 - 10 % [facility] Work Phone: [phone] Platelet mean volume (Bld) [Entitic vol] 7.4 fL 7.4 - 10.4 fL [facility] Work Phone: [phone] Platelets (Bld) [#/Vol] 359 10*3/uL 140 - 440 10*3/uL [employer] Work Phone: [phone] RBC (Bld) [#/Vol] 4.16 10*6/uL Low 4.4 - 5.9 10*6/uL [employer] Work Phone: 1 WBC (Bld) [#/Vol] 12.8 10*3/uL High 3.6 - 10.7 10*3/uL [employer] Work Phone: [phone] Test Performed by [facility], [address] [place] [address] [employer] Work Phone: [phone] HIV 1,2 Ab; p24 Agon 020 HIV 1,2 Ab; p24 Ag NONREACTIVE Normal Nonreactive [facility] Comment on above: Result Comment: Resu lts obtained using the FDA cleared 4th generation HIV test. This test detects antibodies to HIV1, HIV2, HIV Group O, and the presence of the HIV-1 p24 antigen. A Non-Reactive re- sult indicates the patient is negative for both HIV antibody and HIV p24 antigen. All reactive results will undergo reflex confirmation testing at an additional charge. Performed By: #### H EPAN, HIV4 #### [facility] [address] [place] [id number] HIV ScreenOrdered By: Duane baker on 12-24-2019 HIV 1+2 [id number] AG, EIA Non-Reactive Nonreactive NA [employer] Work Phone: [phone] Comment on above: Results obtained usi ng the FDA cleared 4th generation HIV test. This test detects antibodies to HIV1, HIV2, HIV Group O, and the presence of the HIV-1 p24 antigen. A Non-Reactive re- sult indicates the patient is negative for both HIV antibody and HIV p24 antigen. All reactive results will undergo reflex confirmation testing at an additional charge. Hemogram w/ Autodiffon 12-24 Abs Baso Cnt 0.0 10*3/uL Normal 0.0-0.2 [employer] [facility] Comment on above: Performed By: #### H EMDF, BMP3M, LACT3, PCAL #### [address] [address] [place], [place] Abs Neutrophile Cnt 9.8 10*3/uL High 1.8-7.0 [facility] Comment on above: Performed By: #### H EMDF, BMP3M, LACT3, PCAL #### [address] [place], [place] Basophils/100 WBC (Bld) 0.2 % Normal 0.0-2.0 S [facility] Comment on above: Performed By: #### H EMDF, BMP3M, LACT3, PCAL #### [address] [address] [place], [place] Eosinophils (Bld) [#/Vol] 0.4 10*3/uL Normal 0.0-0.5 [facility] Comment on above: Performed By: #### H EMDF, BMP3M, LACT3, PCAL #### [address] [address] [place], [place] Eosinophils/100 WBC (Bld) 3.2 % Normal 1.0-6.0 [facility] Comment on above: Performed By: #### H EMDF, BMP3M, LACT3, PCAL #### [address] Erythrocyte distribution width (RBC) [Ratio] 14.5 % Normal 11.5-14.5 [facility] Comment on above: Performed By: #### H EMDF, BMP3M, LACT3, PCAL #### [address] [place], [place] Granulocytes/100 WBC (Bld) 76.8 % Normal 40.0-80.0 [facility] Comment on above: Performed By: #### H EMDF, BMP3M, LACT3, PCAL #### [address] Hematocrit (Bld) [Volume fraction] 39.9 % Low 40.0-52.0 [facility] Comment on above: Performed By: #### H EMDF, BMP3M, LACT3, PCAL #### [address] [place], [place] Hemoglobin (Bld) [Mass/Vol] 13.5 g/dL Normal 13.0-18.0 [facility] Comment on above: Performed By: #### H EMDF, BMP3M, LACT3, PCAL #### [address] Lymphocytes (Bld) [#/Vol] 1.8 10*3/uL Normal 1.0-4.3 [facility] Comment on above: Performed By: #### H EMDF, BMP3M, LACT3, PCAL #### [address] Lymphocytes/100 WBC (Bld) 14.0 % Low 20.0-40.0 [facility] Comment on above: Performed By: #### H EMDF, BMP3M, LACT3, PCAL #### [address] MCH (RBC) [Entitic mass] 32.6 pg Normal 26.0-34.0 [facility] Comment on above: Performed By: #### H EMDF, BMP3M, LACT3, PCAL #### [address] MCHC (RBC) [Mass/Vol] 33.9 % Normal 32.0-36.0 [facility] Comment on above: Performed By: #### H EMDF, BMP3M, LACT3, PCAL #### [address] MCV (RBC) [Entitic vol] 96.0 fL Normal 80.0-98.0 S [facility] Comment on above: Performed By: #### H EMDF, BMP3M, LACT3, PCAL #### [address] Monocytes (Bld) [#/Vol] 0.7 10*3/uL Normal 0.0-0.8 [facility] Comment on above: Performed By: #### H EMDF, BMP3M, LACT3, PCAL #### [facility] [address] [place], [place] Monocytes/100 WBC (Bld) 5.8 % Normal 2.0-10.0 S [facility] Comment on above: Performed By: #### H EMDF, BMP3M, LACT3, PCAL #### [facility] [address] [place], [place] Platelet mean volume (Bld) [Entitic vol] 7.4 fL Normal 7.4-10.4 [facility] Comment on above: Performed By: #### H EMDF, BMP3M, LACT3, PCAL #### [facility] [address] [place], [place] Platelets (Bld) [#/Vol] 359 10*3/uL Normal 140-440 [facility] Comment on above: Performed By: #### H EMDF, BMP3M, LACT3, PCAL #### [address] [place], [place] RBC (Bld) [#/Vol] 4.16 10*6/uL Low 4.40-5.90 [facility] Comment on above: Performed By: #### H EMDF, BMP3M, LACT3, PCAL #### [facility] [address] [place], [place] WBC (Bld) [#/Vol] 12.8 10*3/uL High 3.6-10.7 [facility] Comment on above: Performed By: #### H EMDF, BMP3M, LACT3, PCAL #### [facility] [address] [place], [place] Hepatitis Panel, AcuteOrdere d By: Duane Colon on 12-24-2019 HAV IgM IA Qn (S) Detected Abnormal Not-Detect ed [facility] [employer] Work Phone: Hep B Core Ab, IgM Not detected Not-Detec deyanira [employer] Work Phone: Hepatitis B Surface Ag Not detected Not-D etected [employer] Work Phone: Hepatitis C Ab Detected Abnormal Not-Detected [facility] Work Phone: [phone] Comment on above: Patients with DETECT ED Hepatitis C Ab results should have a new specimen submitted for supplemental testing with a Hepatitis C Quantitative RNA assay (viral load), if clinically indicated. Interpretation and review of laboratory results Abnormal [facility] Work Phone: Lactic Acidon 12-24-2019 Lactate [Moles/Vol] 0.8 mmol/L Normal 0.7-2.0 [facility] Comment on above: Performed By: #### H EMDF, BMP3M, LACT3, PCAL #### [facility] [address] [place], [place] Lactic acid, plasmaOrdered B y: Carlos Alberto Condon on 12-24-2019 Lactate [Moles/Vol] 0.8 mmol/L 0.7 - 2 mmol/L S [facility] Work Phone: [phone] Test Performed by [facility], [address] [place] [address] Work Phone: [phone] Panel InformationOrdered By: Duane Colon on 12-24-2019 Test Performed by [facility], [address] [place] [id number] [place], [place] [id number] Work Phone: [phone] Procalcitoninon 12-24-2019 Procalcitonin < 0.10 Normal <0.10 [facility] Comment on above: Performed By: #### H EMDF, BMP3M, LACT3, PCAL #### [facility] [place], [place] Interpretation See Below Normal [facility] Comment on above: Result Comment: PCT <0.50 = Low risk of severe sepsis and/or septic shock. PCT >2.00 = High risk of severe sepsis and/or septic shock. Performed By: #### H EMDF, BMP3M, LACT3, PCAL #### [facility] [place], [place] ProcalcitoninOrdered By: Olivier Condon on 12-24-2019 Interpretation See Below [facility] Work Phone: Comment on above: PCT <0.50 = Low risk of severe sepsis and/or septic shock. PCT >2.00 = High risk of severe sepsis and/or septic shock. Procalcitonin <0.10 <0.10 ng/mL [employer] Work Phone: Test Performed by [facility], [address] [place] [id number] [facility] Work Phone: Prothrombin Timeon 0 INR Coag (PPP) [Relative time] 1.0 Normal 0.9-1.1 [facility] Comment on above: Result Comment: Tonio mmended Anticoagulant Therapy: SEE BELOW ----- INR of 2.0 - 3.0 : - Prophylaxis of Venous Thrombosis (high-risk surgery) - Treatment of Venous Thrombosis - Treatment of Pulmonary Embolism (Includes tissue heart valves, Acute Myocardial Infarction to prevent systemic embolism, Valvular Heart Disease, and Atrial Fibrillation) ----- INR of 2.5 - 3.5 : - Mechanical Prosthetic Valves (high risk) - If oral anticoagulant therapy is used to prevent Myocardial Infarction Performed By: #### P T #### [facility] [address] [place] [id number] PT Coag (PPP) [Time] 10.3 s Normal 9.0-12.0 [facility] Comment on above: Result Comment: . Performed By: #### P T #### [facility] [address] [place] [phone] Protime-INROrdered By: June Condon on 12-24-2019 INR Coag (PPP) [Relative time] 1.0 {INR} [employer] Work Phone: Comment on above: Recommended Anticoag ulant Therapy: SEE BELOW ----- INR of 2.0 - 3.0 : - Prophylaxis of Venous Thrombosis (high-risk surgery) - Treatment of Venous Thrombosis - Treatment of Pulmonary Embolism (Includes tissue heart valves, Acute Myocardial Infarction to prevent systemic embolism, Valvular Heart Disease, and Atrial Fibrillation) ----- INR of 2.5 - 3.5 : - Mechanical Prosthetic Valves (high risk) - If oral anticoagulant therapy is used to prevent Myocardial Infarction PT Coag (PPP) [Time] 10.3 s 9 - 12 s [facility] Work Phone: Comment on above: . Test Performed by [facility], [facility] [address] [place], [place] [id number] [place] [address] Work Phone: TS GELon 12-24-2019 TS GEL ABO Group: O Rh, Gel: POS Antibody Screen Gel: NEG Normal [facility] [employer] Comment on above: Performed By: #### T SGL #### [employer] [address] [place], [place] [address] [place] [address] [employer] System TYPE AND SCREENOrdered By: Nancy Barone on 12-24-2019 ABO Grouping O [facility] Work Phone: [phone] Rh Type Positive [facility] Work Phone: Comment on above: Test Performed by [facility] [employer], [facility] [place] [address] Test Performed by [facility] [employer] [facility], [facility] [address] [place], [place] [id number] [place] [address] Work Phone: Vital Signs Date Time Vital Sign Value Performing Clinician Francy fuentesy 12-07-2023 14:36-0500 Body height 180.34 cm [facility] 12-07-2023 14:36-0500 Body mass index (BMI) [Ratio] 23.5 kg/m2 [facility] 12-07-2023 14:36-0500 Body temperature 98.1 [degF] [facility] 12-07-2023 14:36-0500 Body weight 76.43 kg [facility] 12-07-2023 14:36-0500 Diastolic blood pressure 87 mm[Hg] [facility] 12-07-2023 14:36-0500 Heart rate 82 /min [facility] 12-07-2023 14:36-0500 Respiratory rate 18 /min [facility] 12-07-2023 14:36-0500 SaO2% (BldA) [Mass fraction] 98 % [facility] 12-07-2023 14:36-0500 Systolic blood pressure 124 mm[Hg] [facility] 04-02-2023 16:02-0400 Body weight 68.49 kg Barak Vann APRN.[employer] Work Phone: [facility] 04-02-2023 16:02-0400 Diastolic blood pressure 80 mm[Hg] Barak Vann ADMINISTRATIVE SALES ASSISTANT.[employer] Work Phone: [facility] 04-02-2023 16:02-0400 Heart rate 110 /min Barak Vann ADMINISTRATIVE SALES ASSISTANT.[employer] Work Phone: [facility] 04-02-2023 16:02-0400 Respiratory rate 16 /min Barak Vann ADMINISTRATIVE SALES ASSISTANT.[employer] Work Phone: [facility] 04-02-2023 16:02-0400 Systolic blood pressure 130 mm[Hg] Barak Vann ADMINISTRATIVE SALES ASSISTANT.[employer] Work Phone: [facility] 02-26-2023 22:46-0400 Diastolic blood pressure 80 mm[Hg] [facility] 02-26-2023 22:46-0400 Heart rate 63 /min [facility] 02-26-2023 22:46-0400 Respiratory rate 14 /min [facility] 02-26-2023 22:46-0400 SaO2% (BldA) [Mass fraction] 98 % [facility] 02-26-2023 22:46-0400 Systolic blood pressure 141 mm[Hg] [facility] 02-26-2023 18:40-0400 Body height 180.34 cm [facility] 02-26-2023 18:40-0400 Body mass index (BMI) [Ratio] 22.5 kg/m2 [facility] 02-26-2023 18:40-0400 Body temperature 97.3 [degF] [facility] 02-26-2023 18:40-0400 Body weight 73.39 kg [facility] 12-28-2019 17:24-0500 Body temperature 98.2 [degF] Nik [...] 71.22 kg Nik Ferreira MD Work Phone: [facility] Work Phone: Encounters Encounter Date Encounter Type Care Provider Facility Start: 05-05-2024 End: 05-05-2024 Emergency department patient visit Barak Vann Facility:[facility] Start: 12-07-2023 End: 12-07-2023 Emergency department patient visit [facility] Work Phone: Start: 11-08-2023 End: 11-09-2023 ambulatory BARAK VANN Facility:[facility] Start: 05-06-2023 Telephone encounter Duran bermeo APRN.CNP Work Phone: Dermatology Comment on above: Insurance Authorizat ion (Johan) Start: 04-22-2023 Telephone encounter Duran Martel elvie ADASMON.[employer] Work Phone: Dermatology Comment on above: Patient Question Start: 04-02-2023 End: 04-02-2023 Patient encounter procedure Barak Soo ADAMSON.[employer] Work Phone: [facility] Comment on above: Well adult exam ([facility] loree Dx); Encounter for lipid screening for cardiovascular disease; Screening for diabetes mellitus; Encounter for immunization; Abnormal skin growth; Erectile dysfunction, unspecified erectile dysfunction type Start: 04-02-2023 End: 04-02-2023 Patient encounter status Barakalberto Vann APRN.[employer] Work Phone: [facility] Start: 02-26-2023 End: 02-26-2023 [facility] Start: 12-23-2019 End: 12-28-2019 Evaluation and management of inpatient Nik Ferreira MD Work Phone: [facility] Comment on above: Closed fracture of l eft side of mandibular body, initial encounter ([facility]) (Primary Dx) Procedures Date Procedure Procedure Detail Performing Clinician Start: 12-29-2019 Microscopic examinat ion of blood, culture Comment on above: Order Comment: Speci men Source Comment:Blood Performed By: #### H EMDF, BMP3M, LACT3, PCAL #### [address] [id number] Start: 12-28-2019 BASIC METABOLIC PANE L W/ REFLEX TO MG FOR LOW K Jason Arora MD Work Phone: Start: 12-28-2019 Blood count complete auto&auto difrntl wbc Jason Arora MD Work Phone: Start: 12-27-2019 3d rendering w/inter p & postprocess supervision Ana Luisa Estrada MD Work Phone: Start: 12-27-2019 Ct maxillofacial w/c ontrast material Ana Luisa Estrada MD Work Phone: Start: 12-27-2019 BASIC METABOLIC PANE L W/ REFLEX TO MG FOR LOW K Jason Arora MD Work Phone: Start: 12-27-2019 Blood count complete auto&auto difrntl wbc Jason Arora MD Work Phone: Start: 12-26-2019 BASIC METABOLIC PANE L W/ REFLEX TO MG FOR LOW K Jason Arora MD Work Phone: Start: 12-26-2019 Blood count complete auto&auto difrntl wbc Jason Arora MD Work Phone: Start: 12-26-2019 Hepatic function panel Duane Colon MD Work Phone: Start: 12-25-2019 OPERATIVE REPORT 3m Sca nning Start: 12-25-2019 BASIC METABOLIC PANE L W/ REFLEX TO MG FOR LOW K Jason Arora MD Work Phone: Start: 12-25-2019 Blood count complete auto&auto difrntl wbc Jason Arora MD Work Phone: Start: 12-24-2019 Culture bacterial bl ood aerobic w/id isolates Duane Colon MD Work Phone: Start: 12-24-2019 Culture bacterial bl ood aerobic w/id isolates Duane Colon MD Work Phone: Start: 12-24-2019 Antibody hiv-1&hiv-2 single result Duane Colon MD Work Phone: Start: 12-24-2019 Antibody screen Chula Ferreira MD Work Phone: Comment on above: Test Performed by [facility], [address] [place] [id number] Start: 12-23-2019 Assay of lactate Carlos Alberto Condon MD Work Phone: Start: 12-23-2019 BASIC METABOLIC PANE L W/ REFLEX TO MG FOR LOW K Jason Arora MD Work Phone: Start: 12-23-2019 Blood typing serologic abo Andrea Barone MD Work Phone: Start: 12-23-2019 Speech and language therapy regime Jason Arora MD Work Phone: SARS-CoV-2 & FLU Ant igen (Rapid) Plan of Treatment Date Care Activity Detail Author Start: 04-02-2033 Urine microalbumin profile [facility] Start: 08-02-2024 Influenza vaccination Influenz a Vaccine (Season Ended) [facility] Start: 04-02-2024 COVID-19 VACCINE (#1) COVID-19 VACCI NE (#1) [facility] Comment on above: Postponed from 10/25 (Declined at this time) Start: 12-02-2023 Behavioral Health Screening Behavioral Health Screening [facility] Start: 08-02-2023 Covid-19 Vaccine ( season) Covid-19 Vaccine () [facility] Start: 08-02-2023 Influenza vaccination INFLUENZA (Sea son Ended) [facility] Start: 2023 COLOGUARD (FIT-DNA) COLOGUARD (FIT-D NA) [facility] Start: 2023 Colonoscopy COLONOSCOPY [facility] Start: 2023 COLORECTAL CANCER SCREENING COLORECTAL CANCER SCREENING [facility] Start: [address] COLONOGRAPHY [facility] Start: 2023 DIABETES SCREEN DIABETES SCREEN [facility] Start: 2023 Diabetes Screening Diabetes Screenin g [facility] Start: 2023 FECAL OCCULT BLOOD FECAL OCCULT BLOO D [facility] Start: 2023 Screening for malign ant neoplasm of colon [facility] Start: 2023 SIGMOIDOSCOPY SIGMOIDOSCOPY [facility] Start: 04-02-2023 End: 06-02-2023 CBC W Auto Differential panel - Blood CBC + DIFF Lab Routine Well adult exam Expected: 04/02/2023, Expires: 06/02/2023 [facility] Work Phone: Comment on above: Expected: 04/02/2023 , Expires: 06/02/2023 Start: 04-02-2023 End: 06-02-2023 Comprehensive metabolic 2000 panel - Serum or Plasma COMP METABOLIC PANEL Lab Routine Well adult exam Expected: 04/02/2023, Expires: 06/02/2023 [facility] Work Phone: Comment on above: Expected: 04/02/2023 , Expires: 06/02/2023 Start: 04-02-2023 End: 06-02-2023 Hemoglobin A1c in Blood HGB A1C Lab Routine Screening for diabetes mellitus Expected: 04/02/2023, Expires: 06/02/2023 [facility] Work Phone: Comment on above: Expected: 04/02/2023 , Expires: 06/02/2023 Start: 04-02-2023 End: 06-02-2023 LIPID PANEL, NONFASTING LIPID PANEL, NONFASTING Lab Routine Encounter for lipid screening for cardiovascular disease Expected: 04/02/2023, Expires: 06/02/2023 [facility] Work Phone: Comment on above: Expected: 04/02/2023 , Expires: 06/02/2023 Start: 08-02-2019 Influenza vaccination Flu vaccine (# 1) [facility] Work Phone: Start: 2018 Lipid screen Lipid screen [facility] Work Phone: Start: 2013 Lipid panel Lipid Screening [facility] Start: 2013 LIPID SCREEN LIPID SCREEN [facility] Start: 1996 HEPATITIS C SCREENING HEPATITIS C [facility] Start: 1996 Hepatitis C screening Hepatitis C [facility] Start: 1996 HIV SCREENING HIV SCREENING [facility] Start: 1996 HIV screening HIV Screening [facility] Start: 1989 DTaP/Tdap/Td vaccine (1 - Tdap) DTaP/Tdap/Td vaccine (1 - Tdap) [facility] Work Phone: Start: 1984 PNEUMOCOCCAL (1 - PCV) PNEUMOCOCCAL (1 - PCV) [facility] Start: 1984 Pneumococcal 0-64 ye ars Vaccine (1 of 1 - PPSV23) Pneumococcal 0-64 years Vaccine (1 of 1 - PPSV23) [facility] Work Phone: Start: 1984 Pneumococcal vaccination Pneumococcal Vaccine (1 of 2 - PCV) [facility] Anaerobic Culture Anaerobic Cult ure Microbiology Routine 12/24/2019 6:07 PM EST [facility] Work Phone: Basic Metabolic Pane l w/ Reflex to MG Basic Metabolic Panel w/ Reflex to MG Lab Routine 12/24/2019 12:01 AM EST [employer] Work Phone: Bilirubin measuremen t, urine [facility] CBC W Auto Different ial panel - Blood CBC auto differential Lab Routine 12/24/2019 12:01 AM EST [employer] Work Phone: CULTURE BLOOD #1 CULTURE BLOOD # 1 Microbiology STAT 12/23/2019 11:58 PM EST [employer] Work Phone: CULTURE BLOOD #2 CULTURE BLOOD # 2 Microbiology STAT 12/23/2019 11:57 PM EST [employer] Work Phone: Hemoglobin [Presence ] in Urine [facility] Initiate Oxygen Ther apy Protocol Initiate Oxygen Therapy Protocol Respiratory Care Routine Daily until discontinued starting 12/23/2019 [employer] Work Phone: Comment on above: Daily until disconti nued starting 12/23/2019 Measurement of keton es in urine using dipstick [facility] Microscopic urinalysis [facility] Organism count, microscopic method [facility] Patient Education ED Gastroenter itis, Viral (Adult) [facility] Work Phone: Patient referral [facility] Work Phone: pH of Urine [facility] Specific gravity of Urine [facility] Urinalysis, blood, qualitative [facility] Urine dipstick for glucose [facility] Urine dipstick for leukocyte esterase [facility] Urine dipstick for nitrite [facility] Urine dipstick for protein [facility] Urine examination [facility] Urine microscopy: epithelial cells [facility] Urobilinogen [Presen ce] in Urine [facility] White blood cell count [facility] Immunizations Immunization Date Immunization Notes Care Provider Ibeth davidson 04-02-2023 tetanus toxoid, redu meghan diphtheria toxoid, and acellular pertussis vaccine, adsorbed Barak Vann APRN.[facility] Work Phone: [facility] Payers Date Payer Category Payer Self-pay [id number] 2023 Medicaid [employer] [place] [id number] 2023-Present [phone] [address] [address] [place] [address] Medicaid [id number] 2023 Unknown [id number] 2019 Medicaid [employer] [place] [employer] [place] xxxxxxxxxxxx 2019-Present [phone] [address] [address] [place] [address] xxxxxxxxxxxx [id number] Unknown [id number] Unknown [id number] Social History Date Type Detail Facility Start: 12-24-2019 End: 04-02-2023 Tobacco smoking status NHIS Current every day smoker [facility] Work Phone: History of tobacco use Cigarette Smoker [facility] Start: 12-24-2019 End: 11-08-2023 Cigarettes smoked current (pack per day) - Reported [facility] Work Phone: Start: 1980 Sex Assigned At Not on file S [facility] Work Phone: Start: 02-26-2023 End: 02-26-2023 Tobacco smoking status NHIS Unknown if ever smoked [facility] Start: 03-02-2021 - [facility] Start: 11-19-2019 Cigarettes;- [facility] Start: 1980 Sex Assigned At Male [facility] Start: 04-02-2023 Tobacco use and exposure Smokeless tobacco non-user [facility] Work Phone: Start: 04-02-2023 End: 04-04-2023 Alcohol intake Ex-drinker (finding) [facility] Start: 05-06-2023 End: 11-08-2023 Tobacco use panel [facility] Adult Depression Screening Assessment 0 [facility] Clinical Notes 12-25-2019 to 04-22-2024 Telephone Encounter - Mare Ro - 04/22/2024 1:56 PM EDTTelephone Encounter - [facility] - 04/22/2024 1:56 PM EDTTelephone Encounter - Abeba Beckett RN - 04/23/2023 9:28 AM EDT Note Date & Type Note Facility 04-22-2024 Telephone encounter Note Closed, historical. [facility] Work Phone: 04-22-2024 Miscellaneous Notes Closed, historical. Attempted to return patient call. Phone number listed ([phone]) is invalid. PSS-when patient returns call please forward call to dermatology nurse. Thank you. Patients girlfriend, Angelika, Called in. Was curious about results from 04/22 appt with Duran Verduzco. Also wonders if patient should follow up with Duran or his PCP Girlfriend calling because patient had an appointment today and something was removed. She states they have questions. Per caller, patient can be reached at [phone] to go over this. Needs to know when area can be washed how long before results come back. documented in this encounter [facility] 11-08-2023 Note HNO ID: [id number] Author: Barak Vann APRN.[facility] Service: ? Author Type: Nurse Practitioner Type: Progress Notes Filed: 11/08/2023 10:26 AM Note Text: Chief Complaint Patient presents with: Follow Up HPI Eduardo Hammonds is a 43 year old male [...] last appointment. 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 Barak Vann APRN.[facility] 05-06-2023 Miscellaneous Notes PA for Johan submitted via [employer]. Omayra Courtney RN May 06, 2023 1:00 PM documented in this encounter [facility] 04-23-2023 Telephone encounter Note Attempted to return patient call. Phone number listed ([phone]) is invalid. PSS-when patient returns call please forward call to dermatology nurse. Thank you. [facility] 04-22-2023 Telephone encounter Note Patients girlfriend, Angelika, Called in. Was curious about results from 04/22 appt with Duran Verduzco. Also wonders if patient should follow up with Duran or his PCP [facility] 04-22-2023 Telephone encounter Note Girlfriend calling because patient had an appointment today and something was removed. She states they have questions. Per caller, patient can be reached at [phone] to go over this. Needs to know when area can be washed how long before results come back. [facility] 04-02-2023 Instructions Barak Vann APRN.[facility] - 04/02/2023 4:22 PM EDT Complete lab work Schedule with Derm and urology Follow up in 3 months documented in this encounter [facility] 04-02-2023 History of Presen t illness Narrative Chief Complaint Patient presents with: [facility] HPI Eduardo Hammonds is a 42 year old male who presents here today for Above Complaints.. Patient presents to [facility]. Patient reports concerns for a growth on [...] at this time. - Patient was counseled [id number] by myself (the billing provider) for the [...] 607.84, ICD10: N52.9 - CONSULT TO UROLOGY Barak Vann APRN.[facility] documented in this encounter [facility] 12-28-2019 History of Presen t illness Narrative Discussed discharge instructions and homegoing medications with patient. He stated he understands. Provided patients with bandages for face incision. Providing patient with yellow cab to brother's house when he has finished dinner. Facility/Department: [facility] MED [facility] Dysphagia Treatment Note NAME: Eduardo Hammonds : 1980 Patient Diagnosis(es): Patient Active [...] this time. Discharge OT. Chuyita Chauhan OTR/L [facility] - Infectious Diseases Attending Progress Note Subjective: [...] reviewed. Labs: Component Value Date/Time NA 139 12/27/2019 023 K 4.0 12/27/2019238 CL 103 12/27/2019 023 CO2 27 12/27/2019 023 BUN 11 12/27/2019 023 CREATININE 0.63 12/27/2019 023 GLUCOSE 95 12/27/2019238 CALCIUM 8.8 12/27/2019 0239 PROT 6.7 12/26/2019216 LABALBU 3.1 (L) 12/26/2019 021 BILITOT 0.3 12/26/2019 021 ALKPHOS 179 (H) 12/26/2019 021 AST 170 (H) 12/26/2019 0217 ALT 275 (H) 12/26/2019216 PROCAL <0.10 12/23/2019 2355 Component Value Date/Time WBC 6.8 12/27/2019 023 HGB 13.4 12/27/2019238 HCT 38.7 (L) 12/27/2019238 PLT 343 12/27/2019238 GRANULOCYTES 47.8 12/27/2019 023 LYMPHOPCT 39.0 12/27/2019238 MONOPCT 7.4 12/27/2019238 LABEOS [...] Note - Acute Care Surgery PATIENT NAME: Eduardo Hammonds ADMIT DATE: 12/23/2019 TODAY'S DATE: 12/27/2019 [...] Date 12/27/19 0000 - 12/27/19 2359 Shift 5870-6250 9388-7643 8049-6420 24 Hour Total INTAKE P.O.(mL/kg/hr) 650(1.1) 650 [...] MD Division of Trauma Department of Surgery [facility] Pager: [phone] Plastic Surgery Progress Note PATIENT NAME: Eduardo Hammonds TODAY'S DATE: 12/26/2019 SUBJECTIVE: No Issues [...] with large bandaid Data: CBC: Recent Labs 12/23/19235412/25/1925112/26/19 0217 WBC 12.8* 10.2 13.0* HGB 13.5 14.6 12.8* HCT 39.9* 42.1 37.5* PLT 359 368 365 BMP: Recent Labs 12/23/19235412/25/19 0252 12/26/19 0217 NA 136 137 138 [...] fluid pockets and plan for next steps Ana Luisa Estrada MD Plastic Surgery Fellow Department of Surgery - Progress Note - Acute Care Surgery PATIENT NAME: Eduardo Hammonds ADMIT DATE: 12/23/2019 TODAY'S DATE: 12/26/2019 [...] dry INTAKE/OUTPUT: Date 12/26/19 0000 - 12/26/19 235 Shift 5379-4145 1412-8395 8419-9160 24 Hour Total INTAKE P.O. 200 200 I.V.(mL/kg/hr) 4405 4405 Shift Total(mL/kg) 4605(64.7) 4605(64.7) OUTPUT Urine(mL/kg/hr) 1250 1250 Shift Total(mL/kg) 1250(17.6) 1250(17.6) Weight (kg) 71.2 71.2 71.2 71.2 I/O last 3 completed shifts: In: 6663 [P.O.:1300; I.V.:5363] Out: 2750 [Urine:2750] No intake/output data recorded. Data Recent Labs 12/23/19235412/25/19 0252 12/26/19 0217 WBC 12.8* 10.2 13.0* HGB 13.5 14.6 12.8* HCT 39.9* 42.1 37.5* PLT 359 368 365 Recent Labs 12/23/19235412/25/19 0252 12/26/19 0217 NA 136 137 138 [...] MD General Surgery, PGY-1 12/26/2019 7:30 AM ~~~~~~~~~~~~~~~~~~~~~~~~~~~~~~~ ~~~~~~~~~~~~~~~~~~~~~~~~~~~~~~ ATTENDING ADDENDUM I independently saw the above patient and personally reviewed their images, labs, vital signs, and performed a physical exam and ROS. My findings agree with the above note except for any details corrected below. +HepC. Schedule tylenol, increase toradol. Trauma/Surgical Critical Care Pg 0735 [facility] - Infectious Diseases Attending Progress Note Subjective: [...] BUN 11 12/25/2019 0252 CREATININE 0.62 12/25/2019 0252 GLUCOSE 155 (H) 12/25/2019 0252 CALCIUM 9.0 12/25/2019 0252 PROCAL <0.10 12/23/2019 2355 Component Value Date/Time WBC 10.2 12/25/2019 0252 HGB 14.6 12/25/2019 0252 HCT 42.1 12/25/2019 0252 PLT 368 12/25/2019 0252 GRANULOCYTES 87.3 (H) 12/25/2019 025 LYMPHOPCT 10.8 (L) 12/25/2019 0252 MONOPCT 1.2 (L) 12/25/2019251 LABEOS 0.1 (L) [...] now. May need to arrange POP at [facility] if no oral option available. Physical Therapy Received orders for PT eval and treat. Pt independent with all functional mobility and not in need of acute PT services. No charge discharge. PT signing off at this time. Abiola Goode DPT, PT Nutrition rescreen completed. Chart reviewed. Patient to be monitored and followed by the diet shampoo technician. Dietitian available upon request. Judy Luevano DT Speech Language Pathology Facility/Department: [facility] CLINICAL BEDSIDE SWALLOW EVALUATION NAME: Eduardo Hammonds : 1980 ADMISSION DATE: 12/23/2019 ADMITTING DIAGNOSIS: has Mandibular abscess; Closed fracture of left side of mandibular body (HCC); and Cellulitis, face on their problem list. ONSET DATE: 12/23/2019 Date of Eval: 12/25/2019 Evaluating Therapist: Kaci Ladd Current Diet level: Current Liquid Diet [...] level of mandibular fracture and sent to [facility]. Patient to go to OR [...] Score: FLACC (rest): 0 Reason for Referral Eduardo Hammonds was referred for a bedside swallow [...] Mild oral stage dysphagia Treatment Plan Requires LEGAL MEDIATOR Intervention: Yes Duration/Frequency of Treatment: 3x/week for [...] Safety Devices in place: Yes Therapy Time LEGAL MEDIATOR Individual Minutes Time In: 1030 Time Out: 1040 Minutes: 10 LEGAL MEDIATOR Total Treatment Time Timed Code Treatment Minutes: 10 Minutes Total Treatment Time: 10 ROBERT Chacon 12/25/2019 11:09 AM Plastic Surgery Progress Note PATIENT NAME: Eduardo Hammonds TODAY'S DATE: 12/25/2019 SUBJECTIVE: Issues with [...] PGY-7 Plastic & Reconstructive Surgery Fellow Pager #[phone] Attending Note: Patient seen and independently evaluated [...] Note - Acute Care Surgery PATIENT NAME: Eduardo Hammonds ADMIT DATE: 12/23/2019 TODAY'S DATE: 12/25/2019 [...] Date 12/25/19 0000 - 12/25/19 2359 Shift 9401-5929 6386-7114 2992-7455 24 Hour Total INTAKE P.O.(mL/kg/hr) 800 800 I.V.(mL/kg) 1114(15.6) 1114(15.6) IV Piggyback(mL/kg) 100(1.4) 100(1.4) Shift Total(mL/kg) 2014(28.3) 2014(28.3) OUTPUT Urine(mL/kg/hr) 880 880 Shift Total(mL/kg) 880(12.4) 880(12.4) Weight (kg) 71.2 71.2 71.2 71.2 I/O last 3 completed shifts: In: 1442 [P.O.:100; I.V.:1342] Out: 50 [Blood:50] I/O this shift: In: 2014 [P.O.:800; I.V.:1114; IV Piggyback:100] Out: 880 [Urine:880] Data Recent Labs 12/23/19235412/25/19 0252 WBC 12.8* 10.2 HGB 13.5 14.6 [...] MD General Surgery, PGY-1 12/25/2019 6:22 AM ~~~~~~~~~~~~~~~~~~~~~~~~~~~~~~~ ~~~~~~~~~~~~~~~~~~~~~~~~~~~~~~ ATTENDING ADDENDUM I independently saw the above [...] Note - Acute Care Surgery PATIENT NAME: Eduardo Hammonds ADMIT DATE: 12/23/2019 TODAY'S DATE: 12/24/2019 [...] Date 12/24/19 0000 - 12/24/19 2359 Shift 7116-1030 4789-5089 1341-0219 24 Hour Total INTAKE P.O.(mL/kg/hr) 100(0.2) 100 [...] - Blood cx pending - may need halfway abx - NPO currently - Dental to see today - IS, OOB - DVT ppx Yuliana Lopez MD General Surgery, PGY-1 12/24/2019 10:29 AM Plastic Surgery Progress Note PATIENT NAME: Eduardo Hammonds TODAY'S DATE: 12/24/2019 SUBJECTIVE: No acute [...] Dr. Fleming this afternoon Marcelo Rueda MD, #[id number] 12/24/2019 at 6:18 AM Infectious Diseases has been consulted and will manage Vancomycin at this time. Thank you for the consult. Pharmacy signing off for vancomycin dosing. Janiya Lawrence RPh Date: 12/23/19 Time: 10:16 PM documented in this encounter [facility] Work Phone: 12-25-2019 Hospital Discharg e Sonali Tolliver RN - 12/25/2019 The following attachments cannot be sent through Care Everywhere.Facial Trauma Repair: Post-op (Azerbaijani)Jaw Fracture (Azerbaijani)Osteomyelitis (Azerbaijani)Wired Jaw Diet (Azerbaijani)documented in this encounter [facility] Work Phone: Evaluation note Diagnosis Closed fracture of left side of mandibular body, initial encounter ([facility])- Primary Mandibular abscess Inflammatory conditions of jaw Cellulitis, face Cellulitis and abscess of face documented in this encounter [facility] Work Phone: Evaluation noteNo assessment information available [facility] Work Phone: Evaluation note* Diagnosis Well adult exam- Primary Routine general medical examination at a health care facility Encounter for lipid screening for cardiovascular disease Screening for lipoid disorders Screening for diabetes mellitus Encounter for immunization Need for other specified prophylactic vaccination against single bacterial disease Abnormal skin growth Erectile dysfunction, unspecified erectile dysfunction type documented in this encounter [facility] Summary Purpose Family History No Family History Records FoundNo Family History Records FoundNo Family History Records Found Advance Directives No Advanced Directives Records FoundDocuments on File Type Date Recorded Patient Research Consultant Expl anation Advance Directives and Living Will Power of Dye Boarding Machine Operator Latest Code Status on File Code Status Date Activated Date Inactivated Comments Full Code 12/23/2019 10:04 PM Advance Directive Response Recorded Date/ Time Living Will No February 26, 2023 8:41pm Power of Dye Boarding Machine Operator No February 26 8:41pm Advance Directive Response Recorded Date/ Time Living Will No February 26, 2023 7:41pm Power of Dye Boarding Machine Operator No February 26 7:41pm Chief Complaint and Reason for Visit Chief Complaint ABD PAIN Chief Complaint cold s/s Reason for Referral Specialty Diagnoses / Procedures Referred By Riat phillips Referred To Contact Urology Diagnoses Erectile dysfunction, unspecified erectile dysfunction type Procedures CONSULT TO UROLOGY OFFICE/OUTPATIENT [facility] 60-74 MINUTES Barak Vann APRN.[facility] [address] [place] [address] Referral ID Status Reason Start Date Expiration Date Visits Requested Visits Authorized [id number] Authorized PCP Requested Referral 04/02/2023 04/01/2024 1 1 Specialty Diagnoses / Procedures Referred By Rita phillips Referred To Contact Dermatology Diagnoses Abnormal skin growth Procedures CONSULT TO DERMATOLOGY Barak Vann, SNOW.[facility] [address] [place] [address] Referral ID Status Reason Start Date Expiration Date Visits Requested Visits Authorized [id number] Ref Not Required PCP Requested Referral 04/02/2023 04/01/2024 1 1 Additional Source Comments (unrecognized sect ion and content) No Status Records FoundNo Status Records FoundNo Status Records Found INFORMATION SOURCE (unrecogn ized section and content) DATE CREATED AUTHOR 01/08/2020 [employer] DATE CREATED AUTHOR AUTHOR'S ORGANIZ ATION 04/25/2024 [facility] DATE CREATED AUTHOR AUTHOR'S ORGANIZ ATION 05/16/2024 [facility] Teams (unrecognized sec tion and content) Team Status: Active Member Role Status Dates No Primary Care Physician Family Provider Active No Primary Care Physician Primary Care Provider Active Team Status: Inactive Member Role Status Dates No Primary Care Physician Primary Care Provider Active Dr. Angelika Hayward MD Emergency Provider Active Iuss Acoustic Analyst Relationship Specialty Start Date End Date Barak Vann, ADMINISTRATIVE SALES ASSISTANT.[facility] [address] [place], [place] [address] PCP - General Family Medicine 04/02/23 Iuss Acoustic Analyst Relationship Specialty Start Date End Date Barak Vann, ADMINISTRATIVE SALES ASSISTANT.[facility] [address] [place], [place] [address] PCP - General Family Medicine 04/02/23 Team Status: Inactive Member Role Status Dates No Primary Care Physician Primary Care Provider Active Ed Physician Provider Emergency Provider Active Iuss Acoustic Analyst Relationship Specialty Start Date End Date Barak Vann, ADMINISTRATIVE SALES ASSISTANT.[facility] [place], [place] [id number] PCP - General Family Medicine 04/02/23 Goals (unrecognized section and content) Goals may be documented in a n alternate sectionGoals may be documented in an alternate section Source Comments (unrecognize d section and content) In the event this informatio n is protected by the Federal Confidentiality of Alcohol and Drug Abuse Patient Records regulations: The Federal rules restrict any use of the information to criminally investigate or prosecute any alcohol or drug abuse patient.[facility] the event this information is protected by the Federal Confidentiality of Alcohol and Drug Abuse Patient Records regulations: The Federal rules restrict any use of the information to criminally investigate or prosecute any alcohol or drug abuse patient.[facility] the event this information is protected by the Federal Confidentiality of Alcohol and Drug Abuse Patient Records regulations: The Federal rules restrict any use of the information to criminally investigate or prosecute any alcohol or drug abuse patient.[facility] Reason for Visit (unrecogniz ed section and content) Reason Comments Establish Care Reason Comments Insurance Authorization Aldara Reason Comments Patient Question FOR RECORDS PERTAINING TO PATIENTS WHO ARE [...] BE BASED ON THE PRIMARY CLINICAL RECORDS. [facility] [employer] [facility]. provides no warranty or guarantee of the accuracy or completeness of information in this document.
== END 2025-05-30 12:31 | disposition home or self-care (01) ==
LOC: ED 12:27
PROVIDERS: Emergency Provider Emergency Medicine; PCP Nurse Practitioner Family; Referring Provider Emergency Medicine; Visit Provider Emergency Medicine
DX: T23.161A Burn of first degree of back of right hand, initial encounter (principal); T23.201A Burn of second degree of right hand, unspecified site, initial encounter; F17.210 Nicotine dependence, cigarettes, uncomplicated; Y99.0 Civilian activity done for income or pay
CPT/HCPCS: 99282

== ENCOUNTER 2025-09-01 21:20 | Emergency (ER) | payer OTHER, MEDICAID, SELFPAY ==
[2025-09-01 21:20] VITALS: BP 171/91; PULSE 84; RESP 16; TEMP 36.9; O2SAT 98; BMI 23.3
--- NOTE | 2025-09-01 23:22 | EDS_ITS ---
HPI History of Present Illness HPI Narrative: 45-year-old male [id number] unsure of his last tetanus shot will need updated. Was lifting a metal box at work today. He works at [employer]. Has lacerations of the left index ring and small fingers. No other complaints. Chief Complaint: Laceration Informant: patient Occured/Mechanism Mechanism/Context: Yes injury Onset/Context/Timing Onset: Today Context: Sudden Onset Timing: Continuous Current Severity: Mild Maximum Severity: Mild Narrative Narrative: 45-year-old [id number] male laceration left hand primarily left index finger palmar side with lifting a metal box at work. Worker's Comp. Tetanus will need to be updated. Left index finger will need to be sutured repaired. Tetanus Immunization: Unknown Prior similar symptoms: No Recent Illness/Hospitalization: No PFSH PFSH Medical History no medical history no medical history Home Medications ?Medication ?Instructions ?Recorded ?Last Taken ?Type NK 05/05/24 Unknown History Allergy/AdvReac Type Severity Reaction Status Date / Time No Known Allergies Allergy Verified 09/01/25 21:22 Social History current occupational status: employed Smoking Status: Current every day smoker tobacco type: cigarettes ROS ROS ED ROS Narrative Denies recent illness. Constitutional Constitutional ED: Denies chills or fever(s) Eyes Eyes: Denies blurry vision ENT ENT ED: Denies ear pain Cardiovascular Cardiovascular: Denies chest pain Respiratory/Chest Respiratory/Chest: Denies cough Gastrointestinal Gastrointestinal: Denies abdominal pain Genitourinary Genitourinary ED: Denies dysuria Musculoskeletal Musculoskeletal: Denies back pain Integumentary Denies abscess Neurologic Neurologic: Denies headache(s) Psychiatric Psychiatric: Denies anxiety Endocrine Endocrinology: Denies cold intolerance Hematologic/Lymphatic Hematologic/Lymphatic: Denies easy bleeding Allergic/Immunologic Allergic/Immunologic ED: Denies mouth swelling, tongue swelling or urticaria EXAM Physical Exam Narrative Exam Narrative: Well-appearing 45-year-old male. Vital signs stable afebrile. No acute distress. H EENT exam pupils round react light. Moist mutes members. Lungs clear. Heart regular rhythm. Abdomen soft nontender. Moving all 4 extremities. Neurovascularly intact. No edema. Left hand palm index finger PIP there is a laceration about 2 cm may need to be repaired. Mild bleeding. Full flexion extension all digits left hand. Full flexion extension of the wrist. No deformity or significant tenderness. Normal touch sensation and cap refill. He has minor superficial lacerations to the left ring and small finger that I do not think will need to be pared. Neurologically is awake alert. No focal motor or sensory deficits. Const Vital Signs: 09/01/25 21:20 Temperature 98.4 F Temperature Source Oral Pulse Rate 84 Respiratory Rate 16 Blood Pressure 171/91 H Blood Pressure Mean 117 Pulse Ox 98 Oxygen Delivery Method Room Air Positive well nourished and well developed; Negative for obese, cachectic, contractures or unkempt General Appearance ED: well developed and NAD; Negative for unkempt, cachectic, contractures, cyanotic or diaphoretic Nutritional Appearance: Negative for cachectic or obese HEENT Reports moist mucous membranes normocephalic and atraumatic Eyes PERRL and EOMs intact bilaterally Chest Wall inspection of chest normal and palpation of chest normal Resp normal respiratory effort and clear to auscultation bilaterally Cardio regular rate, regular rhythm, S1 normal heart sound, S2 normal heart sound and no murmurs GI non-tender, non-distended and no masses Auscultation: normoactive bowel sounds Palpation: soft; Negative for tender, guarding or rebound tenderness present Back/Spine no CVA tenderness Extremity normal to inspection and full ROM Extremity Narrative: Except left index finger laceration need to be repaired palmar aspect PIP about 2 inches. Full flexion extension. Normal touch sensation. Mild active bleeding. Superficial lacerations to the left ring and small. General Extremety ED: Negative for edema General Extremity: Negative for edema Neuro oriented x3, CN's II-XII intact bilaterally, moves all extremities and no focal motor deficits Sensorium / Orientation: alert, oriented to person, oriented to place and oriented to time Motor Exam: strength 5/5 throughout Psych mental status grossly normal Appearance: Negative for unkempt Skin Lesions: no lesions Rashes: no rashes Trauma: laceration MDM MDM MDM Narrative Medical decision making narrative: 45-year-old male Worker's Comp. injury lacerations to left hand. Left index finger most likely will need repaired. Tetanus will need updated. Procedures Lacerations Left index finger laceration repair: Length: 2 in Depth: Sub Q Shape: Linear Laceration repair: Irrigated, Lidocaine, Local and Skin sutures Number of Sutures/[place]: 2 Suture Information: Ethilon, Simple and 4-0 Comment: left index finger laceration. Local anesthetic of lidocaine. Cleaned with Shur-Clens. Irrigated and washed with saline. Explored. Involve the skin and subcu tissue. Neurovascular intact with normal range of motion. No foreign body. No joint or bone involvement. Closed using 2 simple interrupted 4-0 Ethilon sutures. Patient was instructed on wound care suture removal in a week. Return if any signs of infection. Discharge Plan Triage Chief Complaint: Laceration ED Provider: Fei Perez Dx/Rx/DC Orders Clinical Impression: Finger laceration, Encounter related to worker's compensation claim Instructions: ED Laceration, All Closures Prescriptions: No Action NK Primary Care Provider: Bridget Vann Referrals: Bridget Vann, STEREOTYPER APPRENTICE-[facility] [Primary Care Provider, Medical] - 7 Days for suture removal Activity Restrictions/Additional Instructions: Keep all lacerations clean. Clean daily with soap and water. Do not soak this in any water. Once you clean it daily keep it dry. If it gets wet dry it off. Motrin Tylenol for pain. Apply antibiotic ointment daily. Any signs of infection such as pus, redness, streaks, fever return. Stitches out in 7 to 10 days. Print Language: [place] Disposition Disposition: Home, Self Care
[2025-09-01] MEDS: Lidocaine 1% (20 ml mdv) 20 ML Vial 10 ML INFILT (23:38)
[2025-09-02 01:11] VITALS: BP 154/67; PULSE 78; RESP 16; TEMP 36.7; O2SAT 97
== END 2025-09-02 01:12 | disposition home or self-care (01) ==
PROVIDERS: Emergency Provider Emergency Medicine; PCP Nurse Practitioner Family; Visit Provider Emergency Medicine
DX: S61.211A Laceration without foreign body of left index finger without damage to nail, initial encounter (principal); F17.210 Nicotine dependence, cigarettes, uncomplicated; Z23 Encounter for immunization; X58.XXXA Exposure to other specified factors, initial encounter
CPT/HCPCS: 12001; 90471; 90715; 99282